=== PATIENT | female | born 1985 | race Caucasian/White ===

== ENCOUNTER 2017-08-21 18:21 | Emergency (ER) | payer MEDICAID ==
[2017-08-21] MEDS ORDERED: Sodium Chloride 0.9% 1,000 ML IV ONE (19:12)
[2017-08-21] MEDS ORDERED: Sodium Chloride 0.9% 10 ML Syringe FLUSH PRN (19:13)
[2017-08-21] MEDS ORDERED: Ondansetron 4 MG/2 ML SDV IVPUSH ONE (19:13)
[2017-08-21] MEDS ORDERED: HYDROmorphone 0.5 MG/0.5 ML Syringe IVPUSH ONE (19:13)
--- NOTE | 2017-08-21 19:31 | EDM.PDOC ---
ED HPI GENERAL MEDICAL PROBLEM - General Chief Complaint: Abdominal Pain Stated Complaint: ABDOMINAL PAIN Time Seen by Provider: 08/21/17 18:47 Source of Information: Reports: Patient History Limitations: Reports: No Limitations - History of Present Illness INITIAL COMMENTS - FREE TEXT/NARRATIVE: Patient is a 31-year-old female with a history of endometriosis who presents to the ED complaining of lower suprapubic abdominal pain. Patient describes the discomfort as sharp in nature cramping sensation that waxes and wanes throughout the course of the day worsened with having a bowel movement and also urinating. States discomfort has been progressing over the past 5 days. Her menstrual cycle was approximately 10 days late. She questions if she was . She took a home test that was negative. She notes that she has a history of endometriosis with pain and heavy abnormal vaginal bleeding during her menstrual cycle. She's been saturating 1 tampon every hour. This is her usual pattern for the first 3 days. She states tge only thing that unusual at this point is the pain she's been experiencing. She's had normal bowel movements. States she's had some diarrhea which is normal for her with her menstrual cycle. Has pain with urination which is abnormal as well. She states the pain has been debilitating in comparison to other episodes. She is not on any contraceptives at this time. She was on Depo-Provera shot and discontinued this in August 2016 with plans of trying to have another child. In addition she was mildly nauseated this past week and felt bloated over the past week and a half. She's gained approximately 10-15 pounds over the last week and a half after stopping smoking. Of note she has been eating more. Additional past medical includes type 2 diabetes. She is on no additional medications. 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, Musculoskeletal History: Reports: Other (See Below) Other Musculoskeletal History: broken back in 2003 Social & Family History - Tobacco Use Smoking Status *Q: Former Smoker Used Tobacco, but Quit: Yes Month Tobacco Last Used: 2 weeks ago Second Hand Smoke Exposure: No - Caffeine Use Caffeine Use: Reports: Coffee - Recreational Drug Use Recreational Drug Use: No ED ROS GENERAL - Review of Systems Review Of Systems: See Below Constitutional: Reports: No Symptoms HEENT: Reports: No Symptoms Respiratory: Reports: No Symptoms Cardiovascular: Reports: No Symptoms GI/Abdominal: Reports: Abdominal Pain (suprapubic), Diarrhea (episodic). Denies : Bloody Stool, Constipation, Decreased Appetite, Distension, Flatus, Nausea, Vomiting : Reports: Dysuria, Frequency, Pain, Urgency. Denies: Discharge, Hematuria, Irregular Menses, Urinary Retention Musculoskeletal: Reports: Back Pain (low back) Skin: Reports: No Symptoms Neurological: Reports: No Symptoms ED EXAM, RENAL/ - Physical Exam Exam: See Below Exam Limited By: No Limitations General Appearance: Alert, WD/WN, Mild Distress Ears: Hearing Grossly Normal Nose: Normal Inspection Throat/Mouth: Normal Voice, No Airway Compromise Neck: Normal Inspection, Supple Respiratory/Chest: No Respiratory Distress, Lungs Clear, Normal Breath Sounds, No Accessory Muscle Use Cardiovascular: Normal Peripheral Pulses, Regular Rate, Rhythm GI/Abdominal: Normal Bowel Sounds, Soft, No Organomegaly, Distended, Tender ( Suprapubic region. No McBurney's point. No Watkins sign. No findings concerning for peritonitis) Back Exam: Normal Inspection. No: CVA Tenderness (L), CVA Tenderness (R) Extremities: Normal Inspection, Normal Range of Motion, Non-Tender, No Pedal Edema, Normal Capillary Refill Neurological: Alert, Oriented, CN II-XII Intact, Normal Cognition, No Motor/ Sensory Deficits Psychiatric: Normal Affect, Normal Mood Skin Exam: Warm, Dry, Intact, Normal Color Course - Vital Signs Last Recorded V/S: Last Vital Signs Temp 98.6 F 08/21/17 18:43 Pulse 92 08/21/17 18:43 Resp 16 08/21/17 18:43 BP 146/98 H 08/21/17 18:43 Pulse Ox 99 08/21/17 18:43 - Orders/Labs/Meds Orders: Active Orders 24 hr Category Date Time Status Peripheral IV Care [RC] . DIRECTED Care 08/21/17 19:13 Active Abdomen 2V AP Flat Upright [CR] Stat Exams 08/21/17 20:16 Taken Peripheral IV Insertion Adult [OM.PC] Stat Oth 08/21/17 19:13 Ordered Labs: Laboratory Tests 08/21/17 08/21/17 08/21/17 Range/Units 19:23 19:35 19:35 WBC 7.40 (3.98-10.04) K/mm3 RBC 4.79 (3.98-5.22) M/mm3 Hgb 13.8 (11.2-15.7) gm/L Hct 40.5 (34.1-44.9) % MCV 84.6 (79.4-94.8) fl MCH 28.8 (25.6-32.2) pg MCHC 34.1 (32.2-35.5) g/dl RDW Std Deviation 37.4 (36.4-46.3) fL Plt Count 288 (182-369) K/mm3 MPV 10.1 (9.4-12.3) fl Neut % (Auto) 67.4 (34.0-71.1) % Lymph % (Auto) 24.9 (19.3-51.7) % [place] % (Auto) 6.1 (4.7-12.5) % Eos % (Auto) 1.4 (0.7-5.8) Baso % (Auto) 0.1 (0.1-1.2) % Neut # (Auto) 4.99 (1.56-6.13) K/mm3 Lymph # (Auto) 1.84 (1.18-3.74) K/mm3 [place] # (Auto) 0.45 H (0.24-0.36) K/mm3 Eos # (Auto) 0.10 (0.04-0.36) K/mm3 Baso # (Auto) 0.01 (0.01-0.08) K/mm3 Sodium 142 (136-145) mEq/L Potassium 3.6 (3.5-5.1) mEq/L Chloride 106 (98-107) mEq/L Carbon Dioxide 23 (21-32) mEq/L Anion Gap 16.6 H (5-15) BUN 19 H (7-18) mg/dL Creatinine 0.9 (0.55-1.02) mg/dL Est Cr Clr Drug Dosing 82.25 mL/min Estimated GFR (MDRD) > 60 (>60) mL/min BUN/Creatinine Ratio 21.1 H (14-18) Glucose 109 H (74-106) mg/dL Calcium 9.3 (8.5-10.1) mg/dL Total Bilirubin 0.2 (0.2-1.0) mg/dL AST 23 (15-37) U/L ALT 35 (14-59) U/L Alkaline Phosphatase 63 (46-116) U/L C-Reactive Protein 1.3 H* (<1.0) mg/dL Total Protein 8.0 (6.4-8.2) g/dl Albumin 3.9 (3.4-5.0) g/dl Globulin 4.1 gm/dL Albumin/Globulin Ratio 1.0 (1-2) HCG, Qual (NEGATIVE) Urine Color Yellow (Yellow) Urine Appearance Clear (Clear) Urine pH 6.0 (5.0-8.0) Ur Specific Crow[place] 1.025 (1.005-1.030) Urine Protein Negative (Negative) Urine Glucose (UA) Negative (Negative) Urine Ketones Negative (Negative) Urine Occult Blood 2+ H (Negative) Urine Nitrite Negative (Negative) Urine Bilirubin Negative (Negative) Urine Urobilinogen 0.2 (0.2-1.0) Ur Leukocyte Esterase Negative (Negative) Urine RBC 0-5 (0-5) /hpf Urine WBC 0-5 (0-5) /hpf Ur Epithelial Cells 0-5 (0-5) /hpf Urine Bacteria Not seen (FEW) /hpf Urine Mucus Not seen (FEW) /hpf Blood Type 08/21/17 08/21/17 Range/Units 19:35 19:35 WBC (3.98-10.04) K/mm3 RBC (3.98-5.22) M/mm3 Hgb (11.2-15.7) gm/L Hct (34.1-44.9) % MCV (79.4-94.8) fl MCH (25.6-32.2) pg MCHC (32.2-35.5) g/dl RDW Std Deviation (36.4-46.3) fL Plt Count (182-369) K/mm3 MPV (9.4-12.3) fl Neut % (Auto) (34.0-71.1) % Lymph % (Auto) (19.3-51.7) % [place] % (Auto) (4.7-12.5) % Eos % (Auto) (0.7-5.8) Baso % (Auto) (0.1-1.2) % Neut # (Auto) (1.56-6.13) K/mm3 Lymph # (Auto) (1.18-3.74) K/mm3 [place] # (Auto) (0.24-0.36) K/mm3 Eos # (Auto) (0.04-0.36) K/mm3 Baso # (Auto) (0.01-0.08) K/mm3 Sodium (136-145) mEq/L Potassium (3.5-5.1) mEq/L Chloride (98-107) mEq/L Carbon Dioxide (21-32) mEq/L Anion Gap (5-15) BUN (7-18) mg/dL Creatinine (0.55-1.02) mg/dL Est Cr Clr Drug Dosing mL/min Estimated GFR (MDRD) (>60) mL/min BUN/Creatinine Ratio (14-18) Glucose (74-106) mg/dL Calcium (8.5-10.1) mg/dL Total Bilirubin (0.2-1.0) mg/dL AST (15-37) U/L ALT (14-59) U/L Alkaline Phosphatase (46-116) U/L C-Reactive Protein (<1.0) mg/dL Total Protein (6.4-8.2) g/dl Albumin (3.4-5.0) g/dl Globulin gm/dL Albumin/Globulin Ratio (1-2) HCG, Qual Negative (NEGATIVE) Urine Color (Yellow) Urine Appearance (Clear) Urine pH (5.0-8.0) Ur Specific [place] (1.005-1.030) Urine Protein (Negative) Urine Glucose (UA) (Negative) Urine Ketones (Negative) Urine Occult Blood (Negative) Urine Nitrite (Negative) Urine Bilirubin (Negative) Urine Urobilinogen (0.2-1.0) Ur Leukocyte Esterase (Negative) Urine RBC (0-5) /hpf Urine WBC (0-5) /hpf Ur Epithelial Cells (0-5) /hpf Urine Bacteria (FEW) /hpf Urine Mucus (FEW) /hpf Blood Type A POSITIVE Meds: Medications Discontinued Medications Generic Name Dose Route Start Last Admin Trade Name Freq PRN Reason Stop Dose Admin Dicyclomine HCl 20 mg 08/21/17 20:56 08/21/17 21:06 Bentyl PO 08/21/17 20:57 20 mg ONETIME ONE Administration Hydromorphone HCl 0.25 mg 08/21/17 19:13 08/21/17 19:35 Dilaudid IVPUSH 08/21/17 19:14 0.25 mg ONETIME ONE Administration Sodium Chloride 1,000 mls @ 999 mls/hr 08/21/17 19:12 08/21/17 19:36 Normal Saline IV 08/21/17 20:12 999 mls/hr ONETIME ONE Administration Ketorolac Tromethamine 30 mg 08/21/17 20:55 08/21/17 21:05 Toradol IVPUSH 08/21/17 20:56 30 mg ONETIME ONE Administration Ondansetron HCl 4 mg 08/21/17 19:13 08/21/17 19:35 Zofran IVPUSH 08/21/17 19:14 4 mg ONETIME ONE Administration Sodium Chloride 10 ml 08/21/17 19:13 08/21/17 19:36 Saline Flush FLUSH 10 ml ASDIRECTED PRN Administration Keep Vein Open - Re-Assessments/Exams Free Text/Narrative Re-Assessment/Exam: IV established with normal saline 999 mls per hour and Dilaudid 0.25 mg IVP. Ordered Zofran 4 mg IVP as well. Initial labs and studies include CBC, chem 14, CRP, hCG qualitative, ABO/Rh type , and UA. CBC essentially normal. She panel revealed sodium 142 with potassium 3.6. AG 16.6 with a BUN and 18. Creatinine 0.9. CRP 1.3. HCG negative. UA negative for any concerning findings. X-ray of the abdomen reviewed with Dr. Carlos. Nonspecific air in stool pattern. No air-fluid levels. No signs of obstruction. Toradol 30 mg IV ordered for pain along with 20 mg Bentyl by mouth. 08/21/17 21:07 Reassessment, patients in no acute distress. Vital signs are stable. Will discharge patient home with instructions as documented. Departure - Departure Time of Disposition: 21:08 Disposition: Home, Self-Care 01 Condition: Good Clinical Impression: Menstrual cycle problem Abdominal pain Qualifiers: Abdominal location: generalized Qualified Code(s): R10.84 - Generalized abdominal pain Constipation Qualifiers: Constipation type: unspecified constipation type Qualified Code(s): K59.00 - Constipation, unspecified - Discharge Information Instructions: Constipation, Adult, [id number], Abdominal Pain, Adult, Easy-to -Read Referrals: Roz Randall PA-C [Primary Care Provider] - Forms: ED Department Discharge, ED Return to Work/School Form Additional Instructions: As discussed labs are essentially normal. X-ray of the abdomen did reveal findings of increased stool pattern with the right Hemoccult with nonspecific air pattern present. Believe you may be constipated with history and also findings on examination. In addition her having heavy vaginal bleeding with starting her menstrual cycle which is normal for you. Continue to monitor for any abnormalities and/or worsening bleeding. If present please return back to the ED. Will start you on MiraLAX one capful every day with copious amounts of water. Increase fiber in your diet along with exercise. Follow-up with Primary care provider in the next week for reevaluation as needed. No driving this evening since receiving a sedative medication. May also utilize ibuprofen and Tylenol in alternating fashion for discomfort. - My Orders Last 24 Hours: My Active Orders 08/21/17 19:13 Peripheral IV Care [RC] . DIRECTED Peripheral IV Insertion Adult [OM.PC] Stat 08/21/17 20:16 Abdomen 2V AP Flat Upright [CR] Stat - Assessment/Plan Last 24 Hours: My Active Orders 08/21/17 19:13 Peripheral IV Care [RC] . DIRECTED Peripheral IV Insertion Adult [OM.PC] Stat 08/21/17 20:16 Abdomen 2V AP Flat Upright [CR] Stat
[2017-08-21] MEDS ORDERED: Ketorolac 30 MG/ML SDV IVPUSH ONE (20:55)
[2017-08-21] MEDS ORDERED: Dicyclomine 10 MG Cap PO ONE (20:56)
--- NOTE | 2017-08-22 06:54 | CR ---
Abdomen: Supine and upright views of the abdomen were obtained. Bowel gas pattern appears within normal limits. No abnormal calcifications or soft tissue abnormality is seen. Bony structures are unremarkable. Impression: 1. No abnormality is seen on two-view abdominal x-ray. Diagnostic code #1
== END 2017-08-21 21:20 | disposition home or self-care (01) ==
LOC: MERGE 18:21 → JD.ED 18:21
DX: K59.00 Constipation, unspecified (principal); N94.89 Other specified conditions associated with female genital organs and menstrual cycle; E11.9 Type 2 diabetes mellitus without complications; Z87.891 Personal history of nicotine dependence; Z79.899 Other long term (current) drug therapy
CPT/HCPCS: 36415; 74019; 80053; 81001; 84703; 85025; 86140; 86900; 86901; 96361; 96374; 96375; 99284; A9270; J1170; J1885; J2405; J7040; J7050

== ENCOUNTER 2019-01-09 07:05 | Day surgery (SDC) | payer MEDICAID, OTHER ==
[~2019-01-09 07:05] MED LIST: Lidocaine 1% 2 ML ONE; Lidocaine 1%/Sod Bicarbonate in NS 8.4% 1 ML Syringe IDERM PRN; Midazolam 1 MG/ML 2 ML SDV ONE; Propofol 200 MG/20 ML SDV ONE; Rocuronium 50 MG/5 ML Vial ONE; Sodium Chloride 0.9% 10 ML Syringe FLUSH PRN; fentaNYL 250 MCG/5 ML SDV ONE
--- NOTE | 2019-01-09 07:06 | PCM.OPNOTE ---
- General Post-Op/Procedure Note Date of Surgery/Procedure: 01/09/19 Operative Procedure(s): Total vaginal hysterectomy. Removal of vulvar skin tags x4 Findings: SVE with mobile, anteverted uterus. Normal appearance of cervix and uterus. Views of ovaries limited, but grossly normal. Pre Op Diagnosis: Abnormal uterine bleeding - failed medical management. Vulvar skin tags Post-Op Diagnosis: Same Anesthesia Technique: Spinal Primary Surgeon: Mari Delgado Secondary Surgeon: Tabitha Fletcher Anesthesia Provider: Funmilayo Whtiney Reason Direct Marketing Specialist Was Necessary: BMI of patient, speed/safety of procedure Pathology: Cervix and uterus sent to pathology, excised skin tags discarded Fluid Replacement, Intraop: 1,300 Output, Urine Amount: 50 EBL in mLs: 30 Complications: None Condition: Good Free Text/Narrative:: The risks, benefits, indications, potential complications, and alternatives were explained to the patient and informed consent obtained. The patient was taken to the Operating Room where general anesthesia was induced without complication and found to be adequate. The patient was placed in dorsal lithotomy with Jermaine stirrups and an exam under anesthesia revealed the findings detailed above. The patient was then prepped and draped in the usual sterile fashion. Jarrell catheter placed. A weighted speculum was placed in the vagina, and the cervix was grasped with a single tooth tenaculum. The cervix was injected circumferentially with ~15 of 1 % lidocaine with dilute epinephrine. The cervix was then circumferentially incised with a scalpel. The posterior cul-de-sac was entered sharply without difficulty. An 0-Vicryl pop-off sutures were placed posteriorly to include the posterior vaginal mucosa and the posterior peritoneum. The short weighted speculum was replaced with a long weighted speculum into the peritoneal cavity posteriorly. The bladder was dissected away from the pubovesical cervical fascia anteriorly with a sponge and blunt dissection. The uterosacral ligaments were grasped on either side with the Ligasure, cauterized, and transected. Hemostasis was assured. A raytec was used for further blunt dissection of the bladder away from the pubovesical cervical fascia and then the anterior cul de sac was entered sharply with Metzenbaum scissors. The cardinal ligaments were then serially clamped on both sides with the Ligasure, cauterized, and transected. The uterine arteries were then clamped with the Ligasure, cauterized, and transected. Both cornua were then clamped, cauterized , and transected and the uterus was removed. The posterior vaginal cuff was then closed with a running, locked 0 vicryl suture. Slight oozing noted from anterior cuff. Bimal-seal placed along this surface. The vaginal cuff was closed in a running locked fashion with 0- Vicryl. Hemostasis was noted. Jarrell catheter removed. Vulvar inspection showed 4 skin tags to be removed. Two of these were on left and two on right. Skin tags grasped with a forceps and excised sharply at base with Metzenbaum scissors. Hemostasis of sites obtained with silver nitrate. All sponge, lap, needle, and instrument counts were correct x 2. The patient tolerated the procedure well and there were no complications.
[2019-01-09] MEDS ORDERED: ceFAZolin 1 GM Vial ONE ×2 (07:11)
[2019-01-09] MEDS ORDERED: Bupivacaine 0.5% 30 ML SDV ONE (07:16)
[2019-01-09] MEDS ORDERED: Lidocaine 1% with EPINEPHrine 1:100,000 20 ML MDV ONE (07:16)
[2019-01-09] MEDS: Lactated Ringers 1,000 ML IV SCH ×2 (07:33→11:47)
--- NOTE | 2019-01-09 07:37 | PCM.PREANE ---
Preanesthetic Assessment - Anesthesia/Transfusion/Family Hx Anesthesia History: Prior Anesthesia Without Reaction Family History of Anesthesia Reaction: No Transfusion History: No Prior Transfusion(s) - Review of Systems General: No Symptoms Pulmonary: No Symptoms Cardiovascular: No Symptoms Gastrointestinal: No Symptoms Neurological: No Symptoms Other: Reports: None - Physical Assessment NPO Status Date: 01/09/19 NPO Status Time: 00:00 Pulse: 89 O2 Sat by Pulse Oximetry: 96 Respiratory Rate: 16 Blood Pressure: 127/85 Temperature: 98.2 C ASA Class: 2 Mental Status: Alert & Oriented x3 Airway Class: Mallampati = 1 Dentition: Reports: Normal Dentition (broken tooth upper (R) back molar) Thyro-Mental Finger Breadths: 3 Mouth Opening Finger Breadths: 3 ROM/Head Extension: Full Lungs: Clear to Auscultation, Normal Respiratory Effort Cardiovascular: Regular Rate, Regular Rhythm - Lab Values: Laboratory Last Values Urine HCG, Qual Negative (NEGATIVE) 01/09/19 07:13 - Allergies Allergies/Adverse Reactions: Allergies Allergy/AdvReac Type Severity Reaction Status Date / Time No Known Allergies Allergy Verified 01/08/19 10:40 - Acknowledgements Anesthesia Type Planned: General Anesthesia Pt an Appropriate Candidate for the Planned Anesthesia: Yes Alternatives and Risks of Anesthesia Discussed w Pt/Guardian: Yes Pt/Guardian Understands and Agrees with Anesthesia Plan: Yes PreAnesthesia Questionnaire HEENT History: Reports: None Cardiovascular History: Reports: None Respiratory History: Reports: None Gastrointestinal History: Reports: Chronic Constipation, GERD Genitourinary History: Reports: STD 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, , Therapeutic , Other ( See Below) (LMP-om depo but still having bleeding, awaiting HCG) Other OB/BYN History: , SAB, diagnostic laparoscopy with biospy, port hemorrhage Musculoskeletal History: Reports: Other (See Below) Other Musculoskeletal History: broken back in 2003 Neurological History: Reports: Headaches, Chronic Psychiatric History: Reports: None Endocrine/Metabolic History: Reports: Diabetes, Gestational, Diabetes, Type II ( BS 133 @ 0734) Hematologic History: Reports: None Immunologic History: Reports: None Oncologic (Cancer) History: Reports: None Dermatologic History: Reports: None - Past Surgical History Head Surgeries/Procedures: Reports: None HEENT Surgical History: Reports: Adenoidectomy, Oral Surgery (wisdom teeth), Tonsillectomy Cardiovascular Surgical History: Reports: None Respiratory Surgical History: Reports: None GI Surgical History: Reports: None Female Surgical History: Reports: Other (See Below) (laparoscopy- endometriosis) Endocrine Surgical History: Reports: None Neurological Surgical History: Reports: None Musculoskeletal Surgical History: Reports: None Oncologic Surgical History: Reports: None Dermatological Surgical History: Reports: None - SUBSTANCE USE Smoking Status *Q: Former Smoker Recreational Drug Use History: No - HOME MEDS Home Medications: Home Meds Acetaminophen [Tylenol Extra Strength] 500 mg PO BID PRN 01/08/19 [History] Cholecalciferol (Vitamin D3) [Vitamin D3] 1,000 unit PO DAILY 01/08/19 [History] Cider Vinegar [Apple Cider Vinegar] 500 mg PO DAILY 01/08/19 [History] Fish Oil/Rosebud-3 Fatty Acids [Fish Oil 1,000 MG] 1 gm PO DAILY 01/08/19 [History ] Inulin/Chromium Picolinate [Fiber Gummies] 1 tab PO DAILY 01/08/19 [History] metFORMIN [Glucophage XR] 500 mg PO DAILY 01/08/19 [History] - CURRENT (IN HOUSE) MEDS Current Meds: Current Medications Lactated Ringer's (Ringers, Lactated) 1,000 mls @ 125 mls/hr IV ASDIRECTED SHELIA Stop: 01/09/19 23:00 Lidocaine/Sodium Bicarbonate (Buffered Lidocaine 1% In Ns 8.4%) 0.25 ml IDERM ONETIME PRN PRN Reason: Prior to IV Start Stop: 01/09/19 18:00 Sodium Chloride (Saline Flush) 10 ml FLUSH ASDIRECTED PRN PRN Reason: Keep Vein Open Stop: 01/09/19 18:00 Discontinued Medications Bupivacaine HCl (Marcaine 0.5%) Confirm Administered Dose 30 ml .ROUTE .STK-MED ONE Stop: 01/09/19 07:17 Cefazolin Sodium (Ancef) Confirm Administered Dose 1 gm .ROUTE .STK-MED ONE Stop: 01/09/19 07:12 Cefazolin Sodium (Ancef) Confirm Administered Dose 1 gm .ROUTE .STK-MED ONE Stop: 01/09/19 07:12 Fentanyl (Sublimaze) Confirm Administered Dose 250 mcg .ROUTE .STK-MED ONE Stop: 01/09/19 06:57 Lidocaine HCl (Xylocaine-Mpf 1%) Confirm Administered Dose 2 mls @ as directed .ROUTE .STK-MED ONE Stop: 01/09/19 06:56 Lidocaine HCl (Xylocaine-Mpf 1%) Confirm Administered Dose 2 mls @ as directed .ROUTE .STK-MED ONE Stop: 01/09/19 06:57 Lidocaine/Epinephrine (Xylocaine 1% With Epinephrine 1:100,000) Confirm Administered Dose 20 ml .ROUTE .STK-MED ONE Stop: 01/09/19 07:17 Midazolam HCl (Versed 1 Mg/Ml) Confirm Administered Dose 2 mg .ROUTE .STK-MED ONE Stop: 01/09/19 06:59 Propofol (Diprivan 20 Ml) Confirm Administered Dose 200 mg .ROUTE .STK-MED ONE Stop: 01/09/19 06:56 Rocuronium Omar (Zemuron) Confirm Administered Dose 50 mg .ROUTE .STK-MED ONE Stop: 01/09/19 06:57
[2019-01-09] MEDS ORDERED: Scopolamine 1.5 MG Transdermal Patch TRDERM ONE (07:50)
[2019-01-09] MEDS ORDERED: HYDROmorphone 0.5 MG/0.5 ML Syringe ONE ×2 (08:24→08:56)
[2019-01-09] MEDS ORDERED: Ketorolac 30 MG/ML SDV ONE (08:27)
[2019-01-09] MEDS ORDERED: Ondansetron 4 MG/2 ML SDV ONE (08:27)
[2019-01-09] MEDS ORDERED: Ondansetron 4 MG/2 ML SDV IVPUSH PRN (08:33)
[2019-01-09] MEDS ORDERED: fentaNYL 100 MCG/2 ML SDV IVPUSH PRN (08:33)
[2019-01-09] MEDS ORDERED: diphenhydrAMINE 50 MG/ML SDV IVPUSH PRN (08:33)
[2019-01-09] MEDS ORDERED: HYDROmorphone 0.5 MG/0.5 ML Syringe IVPUSH PRN (08:34)
[2019-01-09] MEDS ORDERED: Lactated Ringers 1,000 ML ONE (09:01)
[2019-01-09] MEDS ORDERED: fentaNYL 100 MCG/2 ML SDV ONE (09:26)
--- NOTE | 2019-01-09 09:34 | PCM.POSTAN ---
POST ANESTHESIA ASSESSMENT - MENTAL STATUS Mental Status: Alert, Oriented - VITAL SIGNS Pulse Rate: 90 SaO2: 97 Resp Rate: 10 Blood Pressure: 112/60 Temperature: 98.9 C - RESPIRATORY Respiratory Status: Respiratory Rate WNL, Airway Patent, O2 Saturation Stable - CARDIOVASCULAR CV Status: Pulse Rate WNL, Blood Pressure Stable - GASTROINTESTINAL GI Status: No Symptoms - PAIN Pain Score: 2 - POST OP HYDRATION Hydration Status: Adequate & Stable
[2019-01-09] MEDS ORDERED: Acetaminophen/oxyCODONE 325-5 MG Tab PO PRN (10:22)
--- NOTE | 2019-01-09 10:33 | PCM48HPAN ---
Post Anesthesia Note - EVALUATION WITHIN 48HRS OF ANESTHETIC Vital Signs in Normal Range: Yes Patient Participated in Evaluation: Yes Respiratory Function Stable: Yes Airway Patent: Yes Cardiovascular Function Stable: Yes Hydration Status Stable: Yes Pain Control Satisfactory: Yes (pain responding to dilaudid per RN) Nausea and Vomiting Control Satisfactory: Yes Mental Status Recovered: Yes Temperature: 98.9 C
== END 2019-01-09 12:33 | disposition home or self-care (01) ==
LOC: JD.SDS 07:05
PROVIDERS: ATTEND Obstetrics & Gynecology
DX: N93.9 Abnormal uterine and vaginal bleeding, unspecified (principal); N85.4 Malposition of uterus; N90.89 Other specified noninflammatory disorders of vulva and perineum; E11.9 Type 2 diabetes mellitus without complications; Z87.891 Personal history of nicotine dependence; Z79.4 Long term (current) use of insulin; Z79.899 Other long term (current) drug therapy
CPT/HCPCS: 00944; 36415; 80048; 81025; 82962; 85025; 86850; 86900; 86901; A9270-GY; J0690; J1170; J1885; J2001; J2250; J2405; J2704; J3010; J3490; J7120

== ENCOUNTER 2021-02-12 17:46 | Emergency (ER) | payer BC, OTHER ==
[2021-02-12] MEDS ORDERED: Ondansetron 4 MG/2 ML SDV IVPUSH ONE (18:23)
[2021-02-12] MEDS ORDERED: Sodium Chloride 0.9% 1,000 ML IV STA (18:23)
[2021-02-12] MEDS ORDERED: Sodium Chloride 0.9% 10 ML Syringe FLUSH PRN (18:23)
[2021-02-12] MEDS ORDERED: Pantoprazole 40 MG Vial IVPUSH ONE (18:25)
--- NOTE | 2021-02-12 18:35 | EDM.PDOC ---
<Franko Bahena A - Last Filed: 02/12/21 19:27> ED HPI GENERAL MEDICAL PROBLEM - General Chief Complaint: Abdominal Pain Stated Complaint: ABDOMINAL PAIN Time Seen by Provider: 02/12/21 18:01 Source of Information: Reports: Patient History Limitations: Reports: No Limitations - History of Present Illness INITIAL COMMENTS - FREE TEXT/NARRATIVE: The patient presents with upper abdominal pain with nausea. This started about 2 days ago. She had a gastric sleeve 10 months ago and she lost 80 pounds. She still has her appendix and gallbladder. She did eat some pizza and beer which she usually does not eat. She has no fever, chills, cough, chest pain, shortness of breath, dysuria or diarrhea. She was on vacation and just came back today. Onset: Gradual Duration: Day(s): (2) Location: Reports: Abdomen Quality: Reports: Sharp Severity: Moderate Improves with: Reports: None Worsens with: Reports: None Associated Symptoms: Reports: Nausea/Vomiting. Denies: Chest Pain, Cough, Fever/Chills, Headaches, Shortness of Breath Epigastric Pain Score (Numeric/FACES): 5 - Related Data Allergies Allergy/AdvReac Type Severity Reaction Status Date / Time No Known Allergies Allergy Verified 02/12/21 18:00 Home Meds: Home Meds Acetaminophen [Tylenol Extra Strength] 1,000 mg PO Q6H PRN 02/12/21 [History] Omeprazole 20 mg PO ASDIRECTED 02/12/21 [History] Ondansetron [Zofran ODT] 1 tab PO Q8H PRN #10 tab.dis 02/12/21 [Rx] Past Medical History HEENT History: Reports: None Cardiovascular History: Reports: None Respiratory History: Reports: Pneumonia, Recurrent Gastrointestinal History: Reports: Chronic Constipation, GERD Genitourinary History: Reports: STD 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: Reports: Endometriosis, , Therapeutic , Other (See Below) Other 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: , SAB, diagnostic laparoscopy with biospy, port hemorrhage Musculoskeletal History: Reports: Fracture, Other (See Below) Other Musculoskeletal History: broken back in 2003 Neurological History: Reports: Headaches, Chronic Psychiatric History: Reports: Anxiety Endocrine/Metabolic History: Reports: Diabetes, Gestational, Diabetes, Type II Hematologic History: Reports: Anemia Immunologic History: Reports: None Oncologic (Cancer) History: Reports: None Dermatologic History: Reports: None - Infectious Disease History Infectious Disease History: Reports: Chicken Pox - Past Surgical History HEENT Surgical History: Reports: Adenoidectomy, Oral Surgery, Tonsillectomy GI Surgical History: Reports: Other (See Below) Other GI Surgeries/Procedures: gastric sleeve. Female Surgical History: Reports: Hysterectomy Social & Family History - Family History Cardiac: Reports: Heart Failure Neurological: Reports: CVA Endocrine/Metabolic: Reports: Diabetes, type II Oncologic: Reports: Prostate, Other (See Below) Other Oncologic Family History: throat cancer- father - Tobacco Use Tobacco Use Status *Q: Never Tobacco User Second Hand Smoke Exposure: No - Caffeine Use Caffeine Use: Reports: Coffee - Recreational Drug Use Recreational Drug Use: No ED ROS GENERAL - Review of Systems Review Of Systems: See Below Constitutional: Reports: No Symptoms HEENT: Reports: No Symptoms Respiratory: Reports: No Symptoms Cardiovascular: Reports: No Symptoms Endocrine: Reports: No Symptoms GI/Abdominal: Reports: Abdominal Pain, Nausea. Denies: Diarrhea, Vomiting : Reports: No Symptoms Musculoskeletal: Reports: No Symptoms ED EXAM, GI/ABD - Physical Exam Exam: See Below Exam Limited By: No Limitations General Appearance: Alert, No Apparent Distress Ears: Normal External Exam Nose: Normal Inspection Head: Atraumatic, Normocephalic Neck: Normal Inspection Respiratory/Chest: No Respiratory Distress, Lungs Clear, Normal Breath Sounds Cardiovascular: Regular Rate, Rhythm, No Edema, No Murmur GI/Abdominal Exam: Soft, No Organomegaly, No Mass, Tender (Moderate tenderness to the right upper abdomen) Course - Re-Assessments/Exams Free Text/Narrative Re-Assessment/Exam: 02/12/21 18:34 I ordered an IV NS 1L bolus, zofran 4mg IV, protonix 40mg IV, labs, UA and a CT of her abdomen and pelvis. 02/12/21 19:27 Her CBC looks good. It is change of shift. Dr Peace to take over. Departure - Departure Disposition: Home, Self-Care 01 Clinical Impression: Upper abdominal pain of unknown etiology, Nausea & vomiting - Discharge Information Prescriptions: Ondansetron [Zofran ODT] 1 tab PO Q8H PRN #10 tab.dis PRN Reason: Nausea/Vomiting Instructions: Abdominal Pain, Adult, [id number] Referrals: Roz Randall PA-C [Primary Care Provider] - Blaise Goff MD [Ordering Only Provider] - Forms: ED Department Discharge Additional Instructions: You were seen in the emergency room for 2 days of upper abdominal pain with nausea and vomiting, in the setting of undergoing a laparoscopic sleeve gastrectomy about 10 months ago. Work-up in the ER included several blood tests, a urinalysis, and a CT of your abdomen and pelvis with oral and IV contrast. Your entire work-up was unremarkable, and does not explain the cause of your symptoms. You can be reassured, however, that nothing terrible appears to be happening. A prescription for the anti-nausea medicine Zofran has been sent to the [facility], located just south and across the [address] from [facility]. You may dissolve 1 tablet of Zofran on your tongue up to every 8 hours, as needed for nausea/vomiting. We recommend that you ingest a primarily liquid diet over the weekend. If your symptoms persist through the weekend without getting better or worse, we recommend that you follow-up with your bariatric surgeon, Dr. Blaise Goff. If your symptoms worsen, please do not hesitate to return to the ER for reevaluation. Sepsis Event Note (ED) - Evaluation Sepsis Screening Result: No Definite Risk <Lacho Peace - Last Filed: 02/12/21 23:20> Course - Vital Signs Last Recorded V/S: Last Vital Signs Temp 36.7 C 02/12/21 17:50 Pulse 68 02/12/21 17:50 Resp 18 02/12/21 17:50 BP 142/99 H 02/12/21 17:50 Pulse Ox 100 02/12/21 17:50 - Orders/Labs/Meds Orders: Active Orders 24 hr Category Date Time Status Peripheral IV Care [RC] . DIRECTED Care 02/12/21 18:24 Active Abdomen Pelvis w Cont [CT] Stat Exams 02/12/21 18:23 Taken Sodium Chloride 0.9% [Normal Saline] 100 ml Med 02/12/21 21:30 Active IV ASDIRECTED Sodium Chloride 0.9% [Saline Flush] Med 02/12/21 18:23 Active 10 ml FLUSH ASDIRECTED PRN Sodium Chloride 0.9% [Saline Flush] Med 02/12/21 21:30 Active 10 ml FLUSH BOLUS ED Antiemetic Medication Reflex [OM.PC] Stat Oth 02/12/21 18:24 Ordered Peripheral IV Insertion Adult [OM.PC] Stat Ot 02/12/21 18:23 Ordered Medication Orders Sodium Chloride (Normal Saline) 100 mls @ 60 drops/hr IV ASDIRECTED SHELIA Last Admin: 02/12/21 21:20 Dose: 60 drops/hr Documented by: VLADIMIR Sodium Chloride (Sodium Chloride 0.9% 10 Ml Syringe) 10 ml FLUSH ASDIRECTED PRN PRN Reason: Keep Vein Open Last Admin: 02/12/21 19:09 Dose: 10 ml Documented by: RISHIMIC Sodium Chloride (Sodium Chloride 0.9% 10 Ml Syringe) 10 ml FLUSH [facility] Last Admin: 02/12/21 21:20 Dose: 10 ml Documented by: VLADIMIR Labs: Laboratory Tests 02/12/21 02/12/21 02/12/21 Range/Units 18:50 18:50 18:50 WBC 6.33 (3.98-10.04) K/mm3 RBC 4.19 (3.98-5.22) M/mm3 Hgb 12.5 (11.2-15.7) gm/dl Hct 36.6 (34.1-44.9) % MCV 87.4 (79.4-94.8) fl MCH 29.8 (25.6-32.2) pg MCHC 34.2 (32.2-35.5) g/dl RDW Std Deviation 38.3 (36.4-46.3) fL Plt Count 237 (182-369) K/mm3 MPV 10.3 (9.4-12.3) fl Neut % (Auto) 52.7 (34.0-71.1) % Lymph % (Auto) 38.5 (19.3-51.7) % [place] % (Auto) 6.2 (4.7-12.5) % Eos % (Auto) 2.1 (0.7-5.8) Baso % (Auto) 0.3 (0.1-1.2) % Neut # (Auto) 3.34 (1.56-6.13) K/mm3 Lymph # (Auto) 2.44 (1.18-3.74) K/mm3 [place] # (Auto) 0.39 H (0.24-0.36) K/mm3 Eos # (Auto) 0.13 (0.04-0.36) K/mm3 Baso # (Auto) 0.02 (0.01-0.08) K/mm3 Sodium 143 (136-145) mEq/L Potassium 3.8 (3.5-5.1) mEq/L Chloride 107 (98-107) mEq/L Carbon Dioxide 26 (21-32) mEq/L Anion Gap 13.8 (5-15) BUN 19 H (7-18) mg/dL Creatinine 1.1 H (0.55-1.02) mg/dL Est Cr Clr Drug Dosing 64.84 mL/min Estimated GFR (MDRD) 57 (>60) mL/min BUN/Creatinine Ratio 17.3 (14-18) Glucose 105 H (70-99) mg/dL Calcium 8.8 (8.5-10.1) mg/dL Total Bilirubin 0.2 (0.2-1.0) mg/dL AST 16 (15-37) U/L ALT 23 (14-59) U/L Alkaline Phosphatase 53 (46-116) U/L Total Protein 7.1 (6.4-8.2) g/dl Albumin 3.8 (3.4-5.0) g/dl Globulin 3.3 gm/dL Albumin/Globulin Ratio 1.2 (1-2) Lipase 120 (73-393) U/L HCG, Qual Negative (NEGATIVE) Urine Color (Yellow) Urine Appearance (Clear) Urine pH (5.0-8.0) Ur Specific [place] (1.005-1.030) Urine Protein (Negative) Urine Glucose (UA) (Negative) Urine Ketones (Negative) Urine Occult Blood (Negative) Urine Nitrite (Negative) Urine Bilirubin (Negative) Urine Urobilinogen (0.2-1.0) Ur Leukocyte Esterase (Negative) Urine RBC (0-5) /hpf Urine WBC (0-5) /hpf Ur Squamous Epith Cells (0-5) /hpf Urine Bacteria (FEW) /hpf Urine Mucus (FEW) /hpf 02/12/21 Range/Units 19:35 WBC (3.98-10.04) K/mm3 RBC (3.98-5.22) M/mm3 Hgb (11.2-15.7) gm/dl Hct (34.1-44.9) % MCV (79.4-94.8) fl MCH (25.6-32.2) pg MCHC (32.2-35.5) g/dl RDW Std Deviation (36.4-46.3) fL Plt Count (182-369) K/mm3 MPV (9.4-12.3) fl Neut % (Auto) (34.0-71.1) % Lymph % (Auto) (19.3-51.7) % [place] % (Auto) (4.7-12.5) % Eos % (Auto) (0.7-5.8) Baso % (Auto) (0.1-1.2) % Neut # (Auto) (1.56-6.13) K/mm3 Lymph # (Auto) (1.18-3.74) K/mm3 [place] # (Auto) (0.24-0.36) K/mm3 Eos # (Auto) (0.04-0.36) K/mm3 Baso # (Auto) (0.01-0.08) K/mm3 Sodium (136-145) mEq/L Potassium (3.5-5.1) mEq/L Chloride (98-107) mEq/L Carbon Dioxide (21-32) mEq/L Anion Gap (5-15) BUN (7-18) mg/dL Creatinine (0.55-1.02) mg/dL Est Cr Clr Drug Dosing mL/min Estimated GFR (MDRD) (>60) mL/min BUN/Creatinine Ratio (14-18) Glucose (70-99) mg/dL Calcium (8.5-10.1) mg/dL Total Bilirubin (0.2-1.0) mg/dL AST (15-37) U/L ALT (14-59) U/L Alkaline Phosphatase (46-116) U/L Total Protein (6.4-8.2) g/dl Albumin (3.4-5.0) g/dl Globulin gm/dL Albumin/Globulin Ratio (1-2) Lipase (73-393) U/L HCG, Qual (NEGATIVE) Urine Color Yellow (Yellow) Urine Appearance Clear (Clear) Urine pH 7.5 (5.0-8.0) Ur Specific [place] 1.020 (1.005-1.030) Urine Protein Negative (Negative) Urine Glucose (UA) Negative (Negative) Urine Ketones Negative (Negative) Urine Occult Blood Negative (Negative) Urine Nitrite Negative (Negative) Urine Bilirubin Negative (Negative) Urine Urobilinogen 0.2 (0.2-1.0) Ur Leukocyte Esterase Negative (Negative) Urine RBC 0-5 (0-5) /hpf Urine WBC 0-5 (0-5) /hpf Ur Squamous Epith Cells 0-5 (0-5) /hpf Urine Bacteria Few (FEW) /hpf Urine Mucus Few (FEW) /hpf Meds: Medications Generic Name Dose Route Start Last Admin Trade Name Freq PRN Reason Stop Dose Admin Sodium Chloride 100 mls @ 60 drops/hr 02/12/21 21:30 02/12/21 21:20 Normal Saline IV 60 drops/hr ASDIRECTED SHELIA Administration Sodium Chloride 10 ml 02/12/21 18:23 02/12/21 19:09 Sodium Chloride 0.9% 10 Ml Syringe FLUSH 10 ml ASDIRECTED PRN Administration Keep Vein Open Sodium Chloride 10 ml 02/12/21 21:30 02/12/21 21:20 Sodium Chloride 0.9% 10 Ml Syringe FLUSH 10 ml BOLUS SHELIA Administration Discontinued Medications Generic Name Dose Route Start Last Admin Trade Name Freq PRN Reason Stop Dose Admin Acetaminophen 975 mg 02/12/21 20:25 02/12/21 20:38 Acetaminophen 325 Mg Tab PO 02/12/21 20:26 975 mg NOW ONE Administration Hydromorphone HCl 0.5 mg 02/12/21 19:34 02/12/21 19:44 Hydromorphone 0.5 Mg/0.5 Ml Syringe IVPUSH 02/12/21 19:35 0.5 mg ONETIME ONE Administration Sodium Chloride 1,000 mls @ 1,000 mls/hr 02/12/21 18:23 02/12/21 18:52 Normal Saline IV 02/12/21 19:22 1,000 mls/hr .BOLUS STA Administration Iopamidol 100 ml 02/12/21 21:19 02/12/21 21:20 Iopamidol 612 Mg/Ml 100 Ml Bottle IVPUSH 02/12/21 21:20 100 ml ONETIME ONE Administration Ondansetron HCl 4 mg 02/12/21 18:23 02/12/21 18:52 Ondansetron 4 Mg/2 Ml Sdv IVPUSH 02/12/21 18:24 4 mg ONETIME ONE Administration Pantoprazole Sodium 40 mg 02/12/21 18:25 02/12/21 18:53 Pantoprazole 40 Mg Vial IVPUSH 02/12/21 18:26 40 mg ONETIME ONE Administration - Re-Assessments/Exams Free Text/Narrative Re-Assessment/Exam: 02/12/21 20:[address] Bahena for change of shift. I agree with his history and physical exam as documented. The patient's CMP is remarkable for a BUN/Cr slightly elevated at 19/1.1, and slight hyperglycemia of 105, with the remainder of her CMP being unremarkable. Her lipase level is within normal limits at 120. Her serum qualitative hCG is negative. Her urinalysis is unremarkable. 02/12/21 22:28 CT of the abdomen and pelvis with oral and IV contrast is read by [facility] as "No evidence of acute abnormality in the abdomen or pelvis." 02/12/21 22:49 Test results discussed with the patient. As above, today's work-up is unremarkable, and does not explain the cause of her symptoms. I explained that what ever the cause, it does not appear to be anything serious. I will submit a prescription for Zofran, and recommended that she ingest a primarily liquid diet over the weekend. If her symptoms persist and do not improve, I would like her to follow-up with Dr. Goff, her Bariatric Surgeon. If her symptoms worsen, she should return to the ED for reevaluation. Departure - Departure Time of Disposition: 22:50 Condition: Good - Discharge Information *PRESCRIPTION DRUG MONITORING PROGRAM REVIEWED*: Not Applicable *COPY OF PRESCRIPTION DRUG MONITORING REPORT IN PATIENT JESSICA: Not Applicable Sepsis Event Note (ED) - Focused Exam Vital Signs: Vital Signs Temp Pulse Resp BP Pulse Ox 02/12/21 17:50 36.7 C 68 18 142/99 H 100
[2021-02-12] MEDS ORDERED: HYDROmorphone 0.5 MG/0.5 ML Syringe IVPUSH ONE (19:34)
[2021-02-12] MEDS ORDERED: Acetaminophen 325 MG Tab PO ONE (20:25)
[2021-02-12] MEDS ORDERED: Iopamidol 612 MG/ML 100 ML Bottle IVPUSH ONE (21:19)
[2021-02-12] MEDS ORDERED: Sodium Chloride 0.9% 100 ML IV SCH (21:30)
[2021-02-12] MEDS ORDERED: Sodium Chloride 0.9% 10 ML Syringe FLUSH SCH (21:30)
--- NOTE | 2021-02-13 14:58 | CT ---
CT abdomen and pelvis Technique: Multiple axial sections were obtained from above the dome of the diaphragm inferiorly through the pubic symphysis. Delayed images were also obtained. Reconstructed coronal and sagittal images were also obtained. Comparison: Prior abdominal radiograph of 08/21/17. Findings: Visualized lung bases show nothing acute. Liver contains no focal parenchymal abnormality. Spleen size is normal. Adrenal glands show no nodule. Pancreas appears within normal limits. Gallbladder contains no calcified gallstones. Kidneys show symmetric contrast enhancement. Delayed images show contrast excretion from both kidneys into the ureters and minimal contrast is noted within the bladder. Abdominal aorta shows no aneurysm. No retroperitoneal adenopathy or mesenteric abnormalities are seen. Small fat-containing hernia is noted above the umbilicus with two small densities at the base of the hernia raising the possibility of previous repair. Additional small fat-containing umbilical hernia is also noted which is felt to be incidental. Appendix is felt to be partially seen and appears normal in size. No bowel dilatation is seen. No pelvic mass or adenopathy is seen. No inguinal adenopathy is seen. Bone window settings were reviewed which show no acute osseous finding. Impression: 1. Small fat-containing hernia slightly above the umbilicus which shows two small high density areas at the base of this finding which most likely represent previous surgery. Please correlate. 2. Nothing acute is appreciated on CT study of the abdomen and pelvis. Diagnostic code #2 I agree with preliminary report from [facility], finalized on 02/12/21, 11:23 PM CDT, code 1
== END 2021-02-12 23:00 | disposition home or self-care (01) ==
LOC: JD.ED 17:46
DX: R10.13 Epigastric pain (principal); R11.2 Nausea with vomiting, unspecified; K21.9 Gastro-esophageal reflux disease without esophagitis
CPT/HCPCS: 36415; 74177; 80053; 81001; 83690; 84703; 85025; 96374; 96375; 99284; A9270; C9113; J1170; J2405; J7030; Q9967

== ENCOUNTER 2021-03-09 17:49 | Observation (INO) | payer OTHER ==
[2021-03-09] MEDS ORDERED: Sodium Chloride 0.9% 10 ML Syringe FLUSH PRN (18:57)
[2021-03-09] MEDS ORDERED: Ondansetron 4 MG/2 ML SDV IVPUSH ONE (18:58)
[2021-03-09] MEDS ORDERED: HYDROmorphone 0.5 MG/0.5 ML Syringe IVPUSH ONE ×2 (18:58→21:22)
[2021-03-09] MEDS ORDERED: Sodium Chloride 0.9% 1,000 ML IV ONE (18:58)
--- NOTE | 2021-03-09 19:05 | EDM.PDOC ---
ED HPI GENERAL MEDICAL PROBLEM - General Chief Complaint: Abdominal Pain Stated Complaint: ABD/FLANK PAIN/DIARRHEA Time Seen by Provider: 03/09/21 18:45 Source of Information: Reports: Patient, RN Notes Reviewed History Limitations: Reports: No Limitations - History of Present Illness INITIAL COMMENTS - FREE TEXT/NARRATIVE: Patient is a 35-year-old female who presents to the ER for right upper abdominal pain with associated nausea and diarrhea. The patient states that she was at a wedding this weekend at [facility], and had some alcoholic drinks, and some greasy food the next day to consist of chicken strips, and states by the time she got back to [facility], she ended up having a few bouts of diarrhea, and had some nausea and vomiting. Notes since then she has had some issues with her upper abdomen discomfort. She was seen last month for similar symptoms, but states that the pain seems to be worse in nature. She had a CT, and laboratory evaluation and everything was pretty normal. Patient has had a gastric sleeve, done 1 year ago, and normally has no issues with any of this. She states that a month ago, she had both alcohol and some greasy foods, and then had a "attack" after ingesting those products. She has not had any fevers or chills, cough or shortness of breath. She did test herself for COVID-19 and this was negative. Patient states that movement seems to hurt the pain, walking even seems to hurt, making certain movements like twisting her abdomen side to side seems to hurt. Patient also has a history of endometriosis, but states she is not had a laparoscopy for some time. Last food ingestion was at around 1 PM this afternoon and she had some fruit snacks. Patient also states she has had her uterus taken out. She took some Tylenol and Zofran this morning but has not taken anything else for pain or nausea. States she is still able to pass gas. Upper Abdomen Pain Score (Numeric/FACES): 8 - Related Data Allergies Allergy/AdvReac Type Severity Reaction Status Date / Time No Known Allergies Allergy Verified 03/09/21 18:39 Home Meds: Home Meds Acetaminophen [Tylenol Extra Strength] 1,000 mg PO Q6H PRN 02/12/21 [History] Omeprazole 20 mg PO ASDIRECTED 02/12/21 [History] Ondansetron [Zofran ODT] 1 tab PO Q8H PRN #10 tab.dis 02/12/21 [Rx] Past Medical History HEENT History: Reports: None Cardiovascular History: Reports: None Respiratory History: Reports: Pneumonia, Recurrent Gastrointestinal History: Reports: Chronic Constipation, GERD Genitourinary History: Reports: STD CLOTHING EXAMINER History: Reports: Endometriosis, , Therapeutic , Other (See Below) Other CLOTHING EXAMINER History: , SAB, diagnostic laparoscopy with biospy, port hemorrhage Musculoskeletal History: Reports: Fracture, Other (See Below) Other Musculoskeletal History: broken back in 2003 Neurological History: Reports: Headaches, Chronic Psychiatric History: Reports: Anxiety Endocrine/Metabolic History: Reports: Diabetes, Gestational, Diabetes, Type II Hematologic History: Reports: Anemia Immunologic History: Reports: None Oncologic (Cancer) History: Reports: None Dermatologic History: Reports: None - Infectious Disease History Infectious Disease History: Reports: Chicken Pox - Past Surgical History Head Surgeries/Procedures: Reports: None HEENT Surgical History: Reports: Adenoidectomy, Oral Surgery, Tonsillectomy Cardiovascular Surgical History: Reports: None Respiratory Surgical History: Reports: None GI Surgical History: Reports: Other (See Below) Other GI Surgeries/Procedures: gastric sleeve. Female Surgical History: Reports: Hysterectomy Endocrine Surgical History: Reports: None Neurological Surgical History: Reports: None Musculoskeletal Surgical History: Reports: None Oncologic Surgical History: Reports: None Dermatological Surgical History: Reports: None Social & Family History - Family History Cardiac: Reports: Heart Failure Neurological: Reports: CVA Endocrine/Metabolic: Reports: Diabetes, type II Oncologic: Reports: Prostate, Other (See Below) Other Oncologic Family History: throat cancer- father - Tobacco Use Tobacco Use Status *Q: Never Tobacco User - Caffeine Use Caffeine Use: Reports: Coffee - Recreational Drug Use Recreational Drug Use: No ED ROS GENERAL - Review of Systems Review Of Systems: Comprehensive ROS is negative, except as noted in HPI. ED EXAM, GI/ABD - Physical Exam Exam: See Below Exam Limited By: No Limitations General Appearance: Alert, WD/WN, No Apparent Distress Respiratory/Chest: No Respiratory Distress, Lungs Clear, Normal Breath Sounds, No Accessory Muscle Use, Chest Non-Tender Cardiovascular: Normal Peripheral Pulses, Regular Rate, Rhythm, No Edema GI/Abdominal Exam: Normal Bowel Sounds, Soft, No Distention, No Mass, Tender (Watkins sign positive, but has right sided abdomen pain mainly) Extremities: Normal Inspection, Normal Capillary Refill Neurological: Alert, Oriented, Normal Cognition, No Motor/Sensory Deficits Psychiatric: Normal Affect, Normal Mood Skin Exam: Warm, Dry, Intact, Normal Color, No Rash Course - Vital Signs Last Recorded V/S: Last Vital Signs Temp 97.6 F 03/09/21 18:27 Pulse 90 03/09/21 18:27 Resp 16 03/09/21 18:27 BP 120/83 03/09/21 18:27 Pulse Ox 100 03/09/21 18:27 - Orders/Labs/Meds Orders: Active Orders 24 hr Category Date Time Status Peripheral IV Care [RC] . DIRECTED Care 03/09/21 18:57 Active Abdomen Pelvis w Cont [CT] Stat Exams 03/09/21 20:11 Taken Sodium Chloride 0.9% [Saline Flush] Med 03/09/21 18:57 Active 10 ml FLUSH ASDIRECTED PRN Peripheral IV Insertion Adult [OM.PC] Stat Oth 03/09/21 18:57 Ordered Medication Orders Sodium Chloride (Sodium Chloride 0.9% 10 Ml Syringe) 10 ml FLUSH ASDIRECTED PRN PRN Reason: Keep Vein Open Last Admin: 03/09/21 19:15 Dose: 10 ml Documented by: BIJU Labs: Laboratory Tests 03/09/21 03/09/21 03/09/21 Range/Units 19:00 19:00 20:30 WBC 8.63 (3.98-10.04) K/mm3 RBC 4.44 (3.98-5.22) M/mm3 Hgb 13.2 (11.2-15.7) gm/dl Hct 38.7 (34.1-44.9) % MCV 87.2 (79.4-94.8) fl MCH 29.7 (25.6-32.2) pg MCHC 34.1 (32.2-35.5) g/dl RDW Std Deviation 37.8 (36.4-46.3) fL Plt Count 210 (182-369) K/mm3 MPV 10.4 (9.4-12.3) fl Neut % (Auto) 79.2 H (34.0-71.1) % Lymph % (Auto) 15.9 L (19.3-51.7) % [place] % (Auto) 4.2 L (4.7-12.5) % Eos % (Auto) 0.6 L (0.7-5.8) Baso % (Auto) 0.1 (0.1-1.2) % Neut # (Auto) 6.84 H (1.56-6.13) K/mm3 Lymph # (Auto) 1.37 (1.18-3.74) K/mm3 [place] # (Auto) 0.36 (0.24-0.36) K/mm3 Eos # (Auto) 0.05 (0.04-0.36) K/mm3 Baso # (Auto) 0.01 (0.01-0.08) K/mm3 Sodium 142 (136-145) mEq/L Potassium 3.7 (3.5-5.1) mEq/L Chloride 106 (98-107) mEq/L Carbon Dioxide 27 (21-32) mEq/L Anion Gap 12.7 (5-15) BUN 7 (7-18) mg/dL Creatinine 0.7 (0.55-1.02) mg/dL Est Cr Clr Drug Dosing 101.90 mL/min Estimated GFR (MDRD) > 60 (>60) mL/min BUN/Creatinine Ratio 10.0 L (14-18) Glucose 107 H (70-99) mg/dL Calcium 8.9 (8.5-10.1) mg/dL Total Bilirubin 0.5 (0.2-1.0) mg/dL GGT 21 (5-55) U/L AST 15 (15-37) U/L ALT 23 (14-59) U/L Alkaline Phosphatase 54 (46-116) U/L C-Reactive Protein 2.1 H* (<1.0) mg/dL Total Protein 7.3 (6.4-8.2) g/dl Albumin 3.8 (3.4-5.0) g/dl Globulin 3.5 gm/dL Albumin/Globulin Ratio 1.1 (1-2) Lipase 83 (73-393) U/L Urine Color Yellow (Yellow) Urine Appearance Clear (Clear) Urine pH 7.5 (5.0-8.0) Ur Specific [place] 1.020 (1.005-1.030) Urine Protein Negative (Negative) Urine Glucose (UA) Negative (Negative) Urine Ketones Negative (Negative) Urine Occult Blood Negative (Negative) Urine Nitrite Negative (Negative) Urine Bilirubin Negative (Negative) Urine Urobilinogen 0.2 (0.2-1.0) Ur Leukocyte Esterase Negative (Negative) Urine RBC 0-5 (0-5) /hpf Urine WBC 0-5 (0-5) /hpf Ur Squamous Epith Cells 0-5 (0-5) /hpf Urine Bacteria Occasional (FEW) /hpf Urine Mucus Not seen (FEW) /hpf Meds: Medications Generic Name Dose Route Start Last Admin Trade Name Ester PRN Reason Stop Dose Admin Sodium Chloride 10 ml 03/09/21 18:57 03/09/21 19:15 Sodium Chloride 0.9% 10 Ml Syringe FLUSH 10 ml ASDIRECTED PRN Administration Keep Vein Open Discontinued Medications Generic Name Dose Route Start Last Admin Trade Name Ester PRN Reason Stop Dose Admin Acetaminophen 650 mg 03/09/21 20:12 03/09/21 20:26 Acetaminophen 325 Mg Tab PO 03/09/21 20:13 650 mg NOW ONE Administration Hydromorphone HCl 0.5 mg 03/09/21 18:58 03/09/21 19:13 Hydromorphone 0.5 Mg/0.5 Ml Syringe IVPUSH 03/09/21 18:59 0.5 mg ONETIME ONE Administration Hydromorphone HCl 0.5 mg 03/09/21 21:22 03/09/21 21:28 Hydromorphone 0.5 Mg/0.5 Ml Syringe IVPUSH 03/09/21 21:23 0.5 mg ONETIME ONE Administration Sodium Chloride 1,000 mls @ 999 mls/hr 03/09/21 18:58 03/09/21 19:16 Normal Saline IV 03/09/21 19:58 999 mls/hr ONETIME ONE Administration Ondansetron HCl 4 mg 03/09/21 18:58 03/09/21 19:12 Ondansetron 4 Mg/2 Ml Sdv IVPUSH 03/09/21 18:59 4 mg ONETIME ONE Administration - Re-Assessments/Exams Free Text/Narrative Re-Assessment/Exam: 03/09/21 19:05 Patient presents to the ER for the evaluation of her epigastrium/right upper quadrant abdominal pain. For tonight's purposes we will go ahead and get a IV started, get some basic labs, give her half milligram of Dilaudid, 4 mg Zofran, give her some IV fluids and check a gallbladder ultrasound to try to spare her radiation exposure. Her CT done last month, was essentially normal, there was some small fat-containing hernias appreciated, but no sign of incarceration or strangulation. 03/09/21 20:12 The patient's ultrasound demonstrates no acute abnormalities on the right upper quadrant study, gallbladder shows no findings of gallstones, no gallbladder wall thickening or biliary duct dilatation. Laboratory evaluation again is essentially unremarkable however her CRP is slightly elevated at 2.1. I did go over the findings with the patient, and states she is still having some pain in her abdomen, and would like to have another CT repeated, I did go over the risks of radiation with her, and she states that she would like this test to be performed. So I have ordered an abdomen pelvis CT with IV and oral contrast for ongoing management. 03/09/21 23:[address] has been read by Suzi as early appendicitis, the appendix measures roughly 7.8 cm in AP diameter with hazy margins. I did go over the findings with Dr. Torres, and he will admit the patient for observation overnight, with plan to take the appendix out in the morning, he has given me verbal bridge orders to right, and I will write these and get the patient transferred to [facility] for ongoing management. Departure - Departure Time of Disposition: 23:14 Disposition: Refer to Observation Condition: Good Clinical Impression: Appendicitis Qualifiers: Appendicitis type: acute appendicitis Acute appendicitis type: with localized peritonitis Appendicitis gangrene presence: without gangrene Appendicitis perforation presence: without perforation Appendicitis abscess presence: without abscess Qualified Code(s): K35.30 - Acute appendicitis with localized peritonitis, without perforation or gangrene - Discharge Information *PRESCRIPTION DRUG MONITORING PROGRAM REVIEWED*: No *COPY OF PRESCRIPTION DRUG MONITORING REPORT IN PATIENT JESSICA: No Referrals: Roz Randall PA-C [Primary Care Provider] - Forms: ED Department Discharge Sepsis Event Note (ED) - Evaluation Sepsis Screening Result: No Definite Risk - Focused Exam Vital Signs: Vital Signs Temp Pulse Resp BP Pulse Ox 03/09/21 18:27 97.6 F 90 16 120/83 100 - My Orders Last 24 Hours: My Active Orders 03/09/21 18:57 Peripheral IV Care [RC] . DIRECTED Sodium Chloride 0.9% [Saline Flush] 10 ml FLUSH ASDIRECTED PRN Peripheral IV Insertion Adult [OM.PC] Stat 03/09/21 20:11 Abdomen Pelvis w Cont [CT] Stat - Assessment/Plan Last 24 Hours: My Active Orders 03/09/21 18:57 Peripheral IV Care [RC] . DIRECTED Sodium Chloride 0.9% [Saline Flush] 10 ml FLUSH ASDIRECTED PRN Peripheral IV Insertion Adult [OM.PC] Stat 03/09/21 20:11 Abdomen Pelvis w Cont [CT] Stat
--- NOTE | 2021-03-09 20:02 | US ---
Limited abdominal ultrasound: Multiple real-time images were obtained of the upper right abdomen. Comparison: Prior CT abdomen and pelvis study of 02/12/21, no prior ultrasound study is available. Findings: Liver contains no focal abnormality. Gallbladder shows no findings of gallstones. No gallbladder wall thickening or biliary duct dilatation is seen. Right kidney shows no hydronephrosis or mass. Right kidney has a length of 11.1 cm. Proximal aorta shows no aneurysm. Pancreas is incompletely seen but visualized portions appear within normal limits. Inferior vena cava is patent. Main portal vein shows normal hepatopedal flow. Impression: 1. No abnormality is identified on right upper quadrant abdominal ultrasound. Diagnostic code #1
[2021-03-09] MEDS ORDERED: Acetaminophen 325 MG Tab PO ONE (20:12)
[2021-03-09] MEDS ORDERED: Piperacillin/Tazobactam 4.5 GM in Sodium Chloride 0.9% 100 ML IV ONE (23:20)
[2021-03-09] MEDS ORDERED: Lactated Ringers 1,000 ML IV SCH (23:30)
[2021-03-09] MEDS ORDERED: Ondansetron 4 MG/2 ML SDV IVPUSH PRN (23:53)
[2021-03-10] MEDS: HYDROmorphone 0.5 MG/0.5 ML Syringe IVPUSH PRN ×3 (00:34→10:26)
--- NOTE | 2021-03-10 02:05 | PCM.HP.2 ---
H&P History of Present Illness - General Date of Service: 03/10/21 Admit Problem/Dx: Admission Diagnosis/Problem Admission Diagnosis/Problem Appendicitis Source of Information: Patient History Limitations: Reports: No Limitations - History of Present Illness Initial Comments - Free Text/Narative: Ms. Roach is a 35 yo woman presenting with abdominal pain. This type of pain and location is new for her- she has had episodes of epigastric pain and nausea in the past but she now has lower, right sided abdominal pain. This started two to three days ago. She has had associated nausea. In the ER, she had a CT scan of the abdomen and pelvis with radiologist report describing findings consistent with acute appendicitis. Her WBC is normal at about 8. She has a history of endometriosis and had an ovary-sparing hysterectomy for treatment. She has had a gastric sleeve. Upper Abdomen Pain Score (Numeric/FACES): 8 - Related Data Allergies/Adverse Reactions: Allergies Allergy/AdvReac Type Severity Reaction Status Date / Time No Known Allergies Allergy Verified 03/09/21 18:39 Home Medications: Home Meds Acetaminophen [Tylenol Extra Strength] 1,000 mg PO Q6H PRN 02/12/21 [History] Omeprazole 20 mg PO DAILY 02/12/21 [History] Ondansetron [Zofran ODT] 1 tab PO Q8H PRN #10 tab.dis 02/12/21 [Rx] Past Medical History HEENT History: Reports: None Cardiovascular History: Reports: None Respiratory History: Reports: Pneumonia, Recurrent Gastrointestinal History: Reports: Chronic Constipation, GERD Genitourinary History: Reports: STD NUTTER UP History: Reports: Endometriosis, , Therapeutic , Other (See Below) Other OB/BYN History: , SAB, diagnostic laparoscopy with biospy, port hemorrhage Musculoskeletal History: Reports: Fracture, Other (See Below) Other Musculoskeletal History: broken back in 2003 Neurological History: Reports: Headaches, Chronic Psychiatric History: Reports: Anxiety Endocrine/Metabolic History: Reports: Diabetes, Gestational, Diabetes, Type II, Other (See Below) Other Endocrine/Metabolic History: Pt is no longer diabetic since her gastric sleeve surgery Hematologic History: Reports: Anemia Immunologic History: Reports: None Oncologic (Cancer) History: Reports: None Dermatologic History: Reports: None - Infectious Disease History Infectious Disease History: Reports: Chicken Pox - Past Surgical History Head Surgeries/Procedures: Reports: None HEENT Surgical History: Reports: Adenoidectomy, Oral Surgery, Tonsillectomy Cardiovascular Surgical History: Reports: None Respiratory Surgical History: Reports: None GI Surgical History: Reports: Other (See Below) Other GI Surgeries/Procedures: gastric, 03/26 Female Surgical History: Reports: Hysterectomy Endocrine Surgical History: Reports: None Neurological Surgical History: Reports: None Musculoskeletal Surgical History: Reports: None Oncologic Surgical History: Reports: None Dermatological Surgical History: Reports: None Social & Family History - Family History Family Medical History: Unobtainable Cardiac: Reports: Heart Failure Neurological: Reports: CVA Endocrine/Metabolic: Reports: Diabetes, type II Oncologic: Reports: Prostate, Other (See Below) Other Oncologic Family History: throat cancer- father - Tobacco Use Tobacco Use Status *Q: Never Tobacco User Second Hand Smoke Exposure: No - Caffeine Use Caffeine Use: Reports: None - Alcohol Use Days Per Week of Alcohol Use: 2 Number of Drinks Per Day: 2 Total Drinks Per Week: 4 Date of Last Drink: 03/06/21 Time of Last Drink: 20:00 - Recreational Drug Use Recreational Drug Use: No H&P Review of Systems - Review of Systems: Review Of Systems: See Below General: Reports: No Symptoms HEENT: Reports: No Symptoms Pulmonary: Reports: No Symptoms Cardiovascular: Reports: No Symptoms Gastrointestinal: Reports: Abdominal Pain, Nausea Genitourinary: Reports: No Symptoms Musculoskeletal: Reports: No Symptoms Skin: Reports: No Symptoms Psychiatric: Reports: No Symptoms Neurological: Reports: No Symptoms Hematologic/Lymphatic: Reports: No Symptoms Immunologic: Reports: No Symptoms Exam - Exam Exam: See Below - Vital Signs Vital Signs: Last Vital Signs Temp 36.8 C 03/10/21 00:14 Pulse 75 03/10/21 00:14 Resp 16 03/10/21 00:14 BP 117/77 03/10/21 00:14 Pulse Ox 100 03/10/21 00:14 Weight: 79.424 kg - Exam General: Alert, Oriented, Cooperative HEENT: Conjunctiva Clear Neck: Supple, Trachea Midline Lungs: Clear to Auscultation, Normal Respiratory Effort Cardiovascular: Regular Rate, Regular Rhythm GI/Abdominal Exam: Soft Extremities: Normal Inspection Skin: Warm, Dry Psychiatric: Normal Mood - Patient Data Lab Results Last 24 hrs: Laboratory Results - last 24 hr 03/09/21 03/09/21 03/09/21 Range/Units 19:00 19:00 20:30 WBC 8.63 (3.98-10.04) K/mm3 RBC 4.44 (3.98-5.22) M/mm3 Hgb 13.2 (11.2-15.7) gm/dl Hct 38.7 (34.1-44.9) % MCV 87.2 (79.4-94.8) fl MCH 29.7 (25.6-32.2) pg MCHC 34.1 (32.2-35.5) g/dl RDW Std Deviation 37.8 (36.4-46.3) fL Plt Count 210 (182-369) K/mm3 MPV 10.4 (9.4-12.3) fl Neut % (Auto) 79.2 H (34.0-71.1) % Lymph % (Auto) 15.9 L (19.3-51.7) % [place] % (Auto) 4.2 L (4.7-12.5) % Eos % (Auto) 0.6 L (0.7-5.8) Baso % (Auto) 0.1 (0.1-1.2) % Neut # (Auto) 6.84 H (1.56-6.13) K/mm3 Lymph # (Auto) 1.37 (1.18-3.74) K/mm3 [place] # (Auto) 0.36 (0.24-0.36) K/mm3 Eos # (Auto) 0.05 (0.04-0.36) K/mm3 Baso # (Auto) 0.01 (0.01-0.08) K/mm3 Sodium 142 (136-145) mEq/L Potassium 3.7 (3.5-5.1) mEq/L Chloride 106 (98-107) mEq/L Carbon Dioxide 27 (21-32) mEq/L Anion Gap 12.7 (5-15) BUN 7 (7-18) mg/dL Creatinine 0.7 (0.55-1.02) mg/dL Est Cr Clr Drug Dosing 101.90 mL/min Estimated GFR (MDRD) > 60 (>60) mL/min BUN/Creatinine Ratio 10.0 L (14-18) Glucose 107 H (70-99) mg/dL Calcium 8.9 (8.5-10.1) mg/dL Total Bilirubin 0.5 (0.2-1.0) mg/dL GGT 21 (5-55) U/L AST 15 (15-37) U/L ALT 23 (14-59) U/L Alkaline Phosphatase 54 (46-116) U/L C-Reactive Protein 2.1 H* (<1.0) mg/dL Total Protein 7.3 (6.4-8.2) g/dl Albumin 3.8 (3.4-5.0) g/dl Globulin 3.5 gm/dL Albumin/Globulin Ratio 1.1 (1-2) Lipase 83 (73-393) U/L Urine Color Yellow (Yellow) Urine Appearance Clear (Clear) Urine pH 7.5 (5.0-8.0) Ur Specific [place] 1.020 (1.005-1.030) Urine Protein Negative (Negative) Urine Glucose (UA) Negative (Negative) Urine Ketones Negative (Negative) Urine Occult Blood Negative (Negative) Urine Nitrite Negative (Negative) Urine Bilirubin Negative (Negative) Urine Urobilinogen 0.2 (0.2-1.0) Ur Leukocyte Esterase Negative (Negative) Urine RBC 0-5 (0-5) /hpf Urine WBC 0-5 (0-5) /hpf Ur Squamous Epith Cells 0-5 (0-5) /hpf Urine Bacteria Occasional (FEW) /hpf Urine Mucus Not seen (FEW) /hpf Result Diagrams: 03/09/21 19:00 03/09/21 19:00 Sepsis Event Note - Evaluation Sepsis Screening Result: No Definite Risk - Focused Exam Vital Signs: Vital Signs Temp Temp Pulse Pulse Resp BP BP 03/10/21 00:14 36.8 C 75 16 117/77 03/09/21 23:00 62 20 113/69 03/09/21 18:27 36.4 C 90 16 120/83 Pulse Ox 03/10/21 00:14 100 03/09/21 23:00 97 03/09/21 18:27 100 Problem List Initiated/Reviewed/Updated: Yes Orders Last 24hrs: Active Orders 24 hr Category Date Time Status Patient Status [ADT] Routine ADT 03/09/21 23:26 Active Activity as Tolerated [RC] BID Care 03/09/21 23:51 Active NPO [Nothing Per Oral Diet] [DIET] Diet 03/10/21 Breakfast Active Abdomen Pelvis w Cont [CT] Stat Exams 03/09/21 20:11 Taken HYDROmorphone [Dilaudid] Med 03/09/21 23:52 Active 0.5 mg IVPUSH Q4H PRN Lactated Ringers [Ringers, Lactated] 1,000 ml Med 03/09/21 23:30 Active IV ASDIRECTED Ondansetron [Zofran] Med 03/09/21 23:53 Active 4 mg IVPUSH Q8H PRN Sodium Chloride 0.9% [Saline Flush] Med 03/09/21 18:57 Active 10 ml FLUSH ASDIRECTED PRN Peripheral IV Insertion Adult [OM.PC] Stat Oth 03/09/21 18:57 Ordered Schedule Procedure [COMM] Routine Oth 03/10/21 01:57 Ordered Code Status [Resuscitation Status] Routine Resus Stat 03/10/21 00:01 Ordered Medication Orders Hydromorphone HCl (Hydromorphone 0.5 Mg/0.5 Ml Syringe) 0.5 mg IVPUSH Q4H PRN PRN Reason: Pain Last Admin: 03/10/21 00:34 Dose: 0.5 mg Documented by: ARSEN Lactated Ringer's (Ringers, Lactated) 1,000 mls @ 100 mls/hr IV ASDIRECTED SHELIA Last Admin: 03/09/21 23:51 Dose: 100 mls/hr Documented by: ELISHA Ondansetron HCl (Ondansetron 4 Mg/2 Ml Sdv) 4 mg IVPUSH Q8H PRN PRN Reason: Nausea Sodium Chloride (Sodium Chloride 0.9% 10 Ml Syringe) 10 ml FLUSH ASDIRECTED PRN PRN Reason: Keep Vein Open Last Admin: 03/09/21 19:15 Dose: 10 ml Documented by: BIJU Assessment/Plan Comment:: Although the diagnosis of acute appendicitis seems likely, there are a few findings, including chronicity of symptoms, normal white count, history of endometriosis, which bring the diagnosis into question. My personal interpretation of the CT is that there is a small cystic lesion with inflam matory stranding the right pelvis, possibly separate from the appendix. I discussed this with the patient and feel that appendectomy is indicated regardless, and will explore the abdomen with the laparoscope at the same time if necessary. - Mortality Measure Prognosis:: Good
--- NOTE | 2021-03-10 02:13 | PCM.PREANE ---
Preanesthetic Assessment - Procedure Proposed Procedure: Laparoscopic Appendectomy - Anesthesia/Transfusion/Family Hx Anesthesia History: Prior Anesthesia Reaction Type of Anesthesia Reaction: Excessive Nausea/Vomiting Family History of Anesthesia Reaction: No Transfusion History: No Prior Transfusion(s) Intubation History: Unknown - Review of Systems General: Weakness Pulmonary: No Symptoms Cardiovascular: No Symptoms Gastrointestinal: Abdominal Pain, Diarrhea, Nausea, Vomiting Neurological: No Symptoms Other: Reports: Diabetes (resolved since gastric sleeve), Anxiety - Physical Assessment NPO Status Date: 03/09/21 (Crackers/broth at 1130) NPO Status Time: 23:30 Vital Signs: Last Vital Signs Temp 98.2 F 03/10/21 00:14 Pulse 75 03/10/21 00:14 Resp 16 03/10/21 00:14 BP 117/77 03/10/21 00:14 Pulse Ox 100 03/10/21 00:14 Height: 1.65 m Weight: 79.424 kg ASA Class: 2E Mental Status: Alert & Oriented x3 Airway Class: Mallampati = 2 Dentition: Reports: Normal Dentition, [place](s) Thyro-Mental Finger Breadths: 3 Mouth Opening Finger Breadths: 3 ROM/Head Extension: Full Lungs: Clear to Auscultation, Normal Respiratory Effort Cardiovascular: Regular Rate, Regular Rhythm - Lab Values: Laboratory Last Values WBC 8.63 K/mm3 (3.98-10.04) 03/09/21 19:00 RBC 4.44 M/mm3 (3.98-5.22) 03/09/21 19:00 Hgb 13.2 gm/dl (11.2-15.7) 03/09/21 19:00 Hct 38.7 % (34.1-44.9) 03/09/21 19:00 MCV 87.2 fl (79.4-94.8) 03/09/21 19:00 MCH 29.7 pg (25.6-32.2) 03/09/21 19:00 MCHC 34.1 g/dl (32.2-35.5) 03/09/21 19:00 RDW Std Deviation 37.8 fL (36.4-46.3) 03/09/21 19:00 Plt Count 210 K/mm3 (182-369) 03/09/21 19:00 MPV 10.4 fl (9.4-12.3) 03/09/21 19:00 Neut % (Auto) 79.2 % (34.0-71.1) H 03/09/21 19:00 Lymph % (Auto) 15.9 % (19.3-51.7) L 03/09/21 19:00 [place] % (Auto) 4.2 % (4.7-12.5) L 03/09/21 19:00 Eos % (Auto) 0.6 (0.7-5.8) L 03/09/21 19:00 Baso % (Auto) 0.1 % (0.1-1.2) 03/09/21 19:00 Neut # (Auto) 6.84 K/mm3 (1.56-6.13) H 03/09/21 19:00 Lymph # (Auto) 1.37 K/mm3 (1.18-3.74) 03/09/21 19:00 [place] # (Auto) 0.36 K/mm3 (0.24-0.36) 03/09/21 19:00 Eos # (Auto) 0.05 K/mm3 (0.04-0.36) 03/09/21 19:00 Baso # (Auto) 0.01 K/mm3 (0.01-0.08) 03/09/21 19:00 Sodium 142 mEq/L (136-145) 03/09/21 19:00 Potassium 3.7 mEq/L (3.5-5.1) 03/09/21 19:00 Chloride 106 mEq/L (98-107) 03/09/21 19:00 Carbon Dioxide 27 mEq/L (21-32) 03/09/21 19:00 Anion Gap 12.7 (5-15) 03/09/21 19:00 BUN 7 mg/dL (7-18) 03/09/21 19:00 Creatinine 0.7 mg/dL (0.55-1.02) 03/09/21 19:00 Est Cr Clr Drug Dosing 101.90 mL/min 03/09/21 19:00 Estimated GFR (MDRD) > 60 mL/min (>60) 03/09/21 19:00 BUN/Creatinine Ratio 10.0 (14-18) L 03/09/21 19:00 Glucose 107 mg/dL (70-99) H 03/09/21 19:00 Calcium 8.9 mg/dL (8.5-10.1) 03/09/21 19:00 Total Bilirubin 0.5 mg/dL (0.2-1.0) 03/09/21 19:00 GGT 21 U/L (5-55) 03/09/21 19:00 AST 15 U/L (15-37) 03/09/21 19:00 ALT 23 U/L (14-59) 03/09/21 19:00 Alkaline Phosphatase 54 U/L (46-116) 03/09/21 19:00 C-Reactive Protein 2.1 mg/dL (<1.0) H* 03/09/21 19:00 Total Protein 7.3 g/dl (6.4-8.2) 03/09/21 19:00 Albumin 3.8 g/dl (3.4-5.0) 03/09/21 19:00 Globulin 3.5 gm/dL 03/09/21 19:00 Albumin/Globulin Ratio 1.1 (1-2) 03/09/21 19:00 Lipase 83 U/L (73-393) 03/09/21 19:00 Urine Color Yellow (Yellow) 03/09/21 20:30 Urine Appearance Clear (Clear) 03/09/21 20:30 Urine pH 7.5 (5.0-8.0) 03/09/21 20:30 Ur Specific [place] 1.020 (1.005-1.030) 03/09/21 20:30 Urine Protein Negative (Negative) 03/09/21 20:30 Urine Glucose (UA) Negative (Negative) 03/09/21 20:30 Urine Ketones Negative (Negative) 03/09/21 20:30 Urine Occult Blood Negative (Negative) 03/09/21 20:30 Urine Nitrite Negative (Negative) 03/09/21 20:30 Urine Bilirubin Negative (Negative) 03/09/21 20:30 Urine Urobilinogen 0.2 (0.2-1.0) 03/09/21 20:30 Ur Leukocyte Esterase Negative (Negative) 03/09/21 20:30 Urine RBC 0-5 /hpf (0-5) 03/09/21 20:30 Urine WBC 0-5 /hpf (0-5) 03/09/21 20:30 Ur Squamous Epith Cells 0-5 /hpf (0-5) 03/09/21 20:30 Urine Bacteria Occasional /hpf (FEW) 03/09/21 20:30 Urine Mucus Not seen /hpf (FEW) 03/09/21 20:30 - Allergies Allergies/Adverse Reactions: Allergies Allergy/AdvReac Type Severity Reaction Status Date / Time No Known Allergies Allergy Verified 03/09/21 18:39 - Blood Blood Available: No Product(s) Available: None - Acknowledgements Anesthesia Type Planned: General Anesthesia Pt an Appropriate Candidate for the Planned Anesthesia: Yes Alternatives and Risks of Anesthesia Discussed w Pt/Guardian: Yes Pt/Guardian Understands and Agrees with Anesthesia Plan: Yes PreAnesthesia Questionnaire HEENT History: Reports: None Cardiovascular History: Reports: None Respiratory History: Reports: Pneumonia, Recurrent Gastrointestinal History: Reports: Chronic Constipation, GERD Genitourinary History: Reports: [employer] History: Reports: Endometriosis, , Therapeutic , Other (See Below) Other OB/BYN History: , SAB, diagnostic laparoscopy with biospy, port hemorrhage Musculoskeletal History: Reports: Fracture, Other (See Below) Other Musculoskeletal History: broken back in 2003 Neurological History: Reports: Headaches, Chronic Psychiatric History: Reports: Anxiety Endocrine/Metabolic History: Reports: Diabetes, Gestational, Diabetes, Type II, Other (See Below) Other Endocrine/Metabolic History: Pt is no longer diabetic since her gastric sleeve surgery Hematologic History: Reports: Anemia Immunologic History: Reports: None Oncologic (Cancer) History: Reports: None Dermatologic History: Reports: None - Infectious Disease History Infectious Disease History: Reports: Chicken Pox - Past Surgical History Head Surgeries/Procedures: Reports: None HEENT Surgical History: Reports: Adenoidectomy, Oral Surgery, Tonsillectomy Cardiovascular Surgical History: Reports: None Respiratory Surgical History: Reports: None GI Surgical History: Reports: Other (See Below) Other GI Surgeries/Procedures: gastric, 03/26 Female Surgical History: Reports: Hysterectomy Endocrine Surgical History: Reports: None Neurological Surgical History: Reports: None Musculoskeletal Surgical History: Reports: None Oncologic Surgical History: Reports: None Dermatological Surgical History: Reports: None - SUBSTANCE USE Tobacco Use Status *Q: Former Tobacco User (2016) Tobacco Use Within Last Twelve Months: No Second Hand Smoke Exposure: No Days Per Week of Alcohol Use: 2 Number of Drinks Per Day: 2 Total Drinks Per Week: 4 Date of Last Drink: 03/06/21 Time of Last Drink: 20:00 Recreational Drug Use History: No - HOME MEDS Home Medications: Home Meds Acetaminophen [Tylenol Extra Strength] 1,000 mg PO Q6H PRN 02/12/21 [History] Omeprazole 20 mg PO DAILY 02/12/21 [History] Ondansetron [Zofran ODT] 1 tab PO Q8H PRN #10 tab.dis 02/12/21 [Rx] - CURRENT (IN HOUSE) MEDS Current Meds: Current Medications Hydromorphone HCl (Hydromorphone 0.5 Mg/0.5 Ml Syringe) 0.5 mg IVPUSH Q4H PRN PRN Reason: Pain Last Admin: 03/10/21 00:34 Dose: 0.5 mg Documented by: Lactated Ringer's (Ringers, Lactated) 1,000 mls @ 100 mls/hr IV ASDIRECTED SHELIA Last Admin: 03/09/21 23:51 Dose: 100 mls/hr Documented by: Ondansetron HCl (Ondansetron 4 Mg/2 Ml Sdv) 4 mg IVPUSH Q8H PRN PRN Reason: Nausea Sodium Chloride (Sodium Chloride 0.9% 10 Ml Syringe) 10 ml FLUSH ASDIRECTED PRN PRN Reason: Keep Vein Open Last Admin: 03/09/21 19:15 Dose: 10 ml Documented by: Discontinued Medications Acetaminophen (Acetaminophen 325 Mg Tab) 650 mg PO NOW ONE Stop: 03/09/21 20:13 Last Admin: 03/09/21 20:26 Dose: 650 mg Documented by: Hydromorphone HCl (Hydromorphone 0.5 Mg/0.5 Ml Syringe) 0.5 mg IVPUSH ONETIME ONE Stop: 03/09/21 18:59 Last Admin: 03/09/21 19:13 Dose: 0.5 mg Documented by: Hydromorphone HCl (Hydromorphone 0.5 Mg/0.5 Ml Syringe) 0.5 mg IVPUSH ONETIME ONE Stop: 03/09/21 21:23 Last Admin: 03/09/21 21:28 Dose: 0.5 mg Documented by: Sodium Chloride (Normal Saline) 1,000 mls @ 999 mls/hr IV ONETIME ONE Stop: 03/09/21 19:58 Last Admin: 03/09/21 19:16 Dose: 999 mls/hr Documented by: Piperacillin Sod/Tazobactam (Sod 4.5 gm/ Sodium Chloride) 100 mls @ 200 mls/hr IV ONETIME ONE Stop: 03/09/21 23:49 Last Admin: 03/09/21 23:51 Dose: 200 mls/hr Documented by: Ondansetron HCl (Ondansetron 4 Mg/2 Ml Sdv) 4 mg IVPUSH ONETIME ONE Stop: 03/09/21 18:59 Last Admin: 03/09/21 19:12 Dose: 4 mg Documented by:
[2021-03-10] MEDS ORDERED: Rocuronium 50 MG/5 ML Vial ONE (02:40)
[2021-03-10] MEDS ORDERED: Propofol 200 MG/20 ML SDV ONE ×2 (02:40→04:15)
[2021-03-10] MEDS ORDERED: Dexamethasone 4 MG/ML 5 ML MDV ONE (02:40)
[2021-03-10] MEDS ORDERED: fentaNYL 250 MCG/5 ML SDV ONE (02:40)
[2021-03-10] MEDS ORDERED: Ondansetron 4 MG/2 ML SDV ONE (02:40)
--- NOTE | 2021-03-10 03:17 | PCM.PRNOTE ---
- Free Text/Narrative Note: Date: 03/10/2021 Operation: laparoscopic appendectomy Indication: acute appendicitis Surgeon: Jt Torres MD Findings: inflamed appendix without gangrene or perforation. Right ovarian cyst. Detailed Report: The patient was taken to the operating room from the emergency room for planned laparoscopic appendectomy. The patient had been administered Zosyn on the wards. The patient was positioned on the table supine and timeout was performed. General endotracheal anesthesia was initiated. The patient's left arm was tucked at her side. The abdomen was prepped and draped in usual sterile fashion. A Veress needle was placed at the left upper quadrant in order to establish pneumoperitoneum. Once pressure reached 15 mmHg, air was aspirated inferior to the umbilicus with a needle and syringe. A 2 cm supraumbilical midline incision was made and a 12 mm bladed trocar was inserted into the abdomen. A 5 mm 30 degree laparoscope was inserted and abdominal contents were inspected. The Veress needle was seen and there was no apparent injury from placement. The needle was removed under laparoscopic visualization. Additional 5 mm ports were placed in the suprapubic region and left lower quadrant. Patient was positioned in Trendelenburg and rotated towards the surgeon standing on the patient's left side. Small bowel was moved out of the way in order to expose the cecum and appendix. The appendix was inflamed without evidence of gangrene or perforation. The appendix was retracted anteriorly and inferiorly putting tension on the mesoappendix. The [place] LigaSure was used to make a window through the mesoappendix at the base of the cecum. A 30 mm white load on a laparoscopic linear cutting stapler was used to divide the appendix at its base. The staple line appeared hemostatic. The specimen was placed in an Endo Catch bag and removed through the umbilical port site. The right ovary was identified and inspected- there appeared to be a subcentimeter cyst which was photographed. The umbilical port site was closed at the level of fascia with 0 Vicryl using laparoscopic suture passer. The lateral port site was removed under laparoscopic visualization and there was no hemorrhage noted. Pneumoperitoneum was released and the remaining port was removed. All incisions were closed at the level of skin with running 4-0 Vicryl suture and dressed with Dermabond. A total of 30 cc 0.5% Marcaine with epinephrine was used for local anesthetic throughout the case. The patient tolerated the operation well.
[2021-03-10] MEDS ORDERED: Bupivacaine 0.5%/EPINEPHrine 1:200,000 50 ML MDV ONE (03:31)
[2021-03-10] MEDS ORDERED: Scopolamine 1.5 MG Transdermal Patch TOP ONE (03:43)
[2021-03-10] MEDS ORDERED: Succinylcholine/Sod PF 100 MG/5 ML SYRINGE IV ONE ×2 (03:51)
[2021-03-10] MEDS ORDERED: Midazolam 1 MG/ML 2 ML SDV ONE (04:08)
[2021-03-10] MEDS ORDERED: Lactated Ringers 1,000 ML ONE (04:11)
--- NOTE | 2021-03-10 04:45 | PCM.DCSUM1 ---
Discharge Summary - Hospital Course Free Text/Narrative:: Admitted from the ER last night with abdominal pain and imaging showing evidence of acute appendicitis. Routine laparoscopic appendectomy was performed without complication. Diagnosis: Stroke: No - Discharge Data Discharge Date: 03/10/21 Discharge Disposition: Home, Self-Care 01 Condition: Good - Referral to Home Health Primary Care Physician: HONG Carballo - Patient Instructions Diet: Usual Diet as Tolerated Activity: As Tolerated, No Lifting Over 10 Pounds Showering/Bathing: May Shower, No Tub Bathing/Swimming Wound/Incision Care: Keep Operative Site/Wound Site Clean and Dry Notify Provider of: Fever, Increased Pain, Swelling and Redness, Drainage, Nausea and/or Vomiting - Discharge Plan *PRESCRIPTION DRUG MONITORING PROGRAM REVIEWED*: No *COPY OF PRESCRIPTION DRUG MONITORING REPORT IN PATIENT JESSICA: No Prescriptions/Med Rec: oxyCODONE 5 mg PO Q4H PRN #15 tab PRN Reason: Pain Home Medications: Home Meds Acetaminophen [Tylenol Extra Strength] 1,000 mg PO Q6H PRN 02/12/21 [History] Omeprazole 20 mg PO DAILY 02/12/21 [History] Ondansetron [Zofran ODT] 1 tab PO Q8H PRN #10 tab.dis 02/12/21 [Rx] oxyCODONE 5 mg PO Q4H PRN #15 tab 03/10/21 [Rx] Oxygen Therapy Mode: Room Air Forms: ED Department Discharge Referrals: Roz Randall PA-C [Primary Care Provider] - - Discharge Summary/Plan Comment DC Time >30 min.: No - Patient Data Vitals - Most Recent: Last Vital Signs Temp 36.8 C 03/10/21 03:22 Pulse 72 03/10/21 03:22 Resp 16 03/10/21 03:22 BP 110/89 03/10/21 03:22 Pulse Ox 100 03/10/21 03:22 Weight - Most Recent: 80.195 kg I&O - Last 24 hours: Intake & Output 03/09/21 03/09/21 03/10/21 14:59 22:59 06:59 Intake Total 377 Output Total 450 Balance -73 Lab Results - Last 24 hrs: Laboratory Results - last 24 hr 03/09/21 03/09/21 03/09/21 Range/Units 19:00 19:00 20:30 WBC 8.63 (3.98-10.04) K/mm3 RBC 4.44 (3.98-5.22) M/mm3 Hgb 13.2 (11.2-15.7) gm/dl Hct 38.7 (34.1-44.9) % MCV 87.2 (79.4-94.8) fl MCH 29.7 (25.6-32.2) pg MCHC 34.1 (32.2-35.5) g/dl RDW Std Deviation 37.8 (36.4-46.3) fL Plt Count 210 (182-369) K/mm3 MPV 10.4 (9.4-12.3) fl Neut % (Auto) 79.2 H (34.0-71.1) % Lymph % (Auto) 15.9 L (19.3-51.7) % [place] % (Auto) 4.2 L (4.7-12.5) % Eos % (Auto) 0.6 L (0.7-5.8) Baso % (Auto) 0.1 (0.1-1.2) % Neut # (Auto) 6.84 H (1.56-6.13) K/mm3 Lymph # (Auto) 1.37 (1.18-3.74) K/mm3 [place] # (Auto) 0.36 (0.24-0.36) K/mm3 Eos # (Auto) 0.05 (0.04-0.36) K/mm3 Baso # (Auto) 0.01 (0.01-0.08) K/mm3 Sodium 142 (136-145) mEq/L Potassium 3.7 (3.5-5.1) mEq/L Chloride 106 (98-107) mEq/L Carbon Dioxide 27 (21-32) mEq/L Anion Gap 12.7 (5-15) BUN 7 (7-18) mg/dL Creatinine 0.7 (0.55-1.02) mg/dL Est Cr Clr Drug Dosing 101.90 mL/min Estimated GFR (MDRD) > 60 (>60) mL/min BUN/Creatinine Ratio 10.0 L (14-18) Glucose 107 H (70-99) mg/dL Calcium 8.9 (8.5-10.1) mg/dL Total Bilirubin 0.5 (0.2-1.0) mg/dL GGT 21 (5-55) U/L AST 15 (15-37) U/L ALT 23 (14-59) U/L Alkaline Phosphatase 54 (46-116) U/L C-Reactive Protein 2.1 H* (<1.0) mg/dL Total Protein 7.3 (6.4-8.2) g/dl Albumin 3.8 (3.4-5.0) g/dl Globulin 3.5 gm/dL Albumin/Globulin Ratio 1.1 (1-2) Lipase 83 (73-393) U/L Urine Color Yellow (Yellow) Urine Appearance Clear (Clear) Urine pH 7.5 (5.0-8.0) Ur Specific [place] 1.020 (1.005-1.030) Urine Protein Negative (Negative) Urine Glucose (UA) Negative (Negative) Urine Ketones Negative (Negative) Urine Occult Blood Negative (Negative) Urine Nitrite Negative (Negative) Urine Bilirubin Negative (Negative) Urine Urobilinogen 0.2 (0.2-1.0) Ur Leukocyte Esterase Negative (Negative) Urine RBC 0-5 (0-5) /hpf Urine WBC 0-5 (0-5) /hpf Ur Squamous Epith Cells 0-5 (0-5) /hpf Urine Bacteria Occasional (FEW) /hpf Urine Mucus Not seen (FEW) /hpf Med Orders - Current: Current Medications Hydromorphone HCl (Hydromorphone 0.5 Mg/0.5 Ml Syringe) 0.5 mg IVPUSH Q4H PRN PRN Reason: Pain Last Admin: 03/10/21 00:34 Dose: 0.5 mg Documented by: Lactated Ringer's (Ringers, Lactated) 1,000 mls @ 100 mls/hr IV ASDIRECTED SHELIA Last Admin: 03/09/21 23:51 Dose: 100 mls/hr Documented by: Miscellaneous Information (Remove Transderm Scop Patch) 1 ea TRDERM Q72H [facility] Stop: 03/13/21 04:01 Ondansetron HCl (Ondansetron 4 Mg/2 Ml Sdv) 4 mg IVPUSH Q8H PRN PRN Reason: Nausea Sodium Chloride (Sodium Chloride 0.9% 10 Ml Syringe) 10 ml FLUSH ASDIRECTED PRN PRN Reason: Keep Vein Open Last Admin: 03/09/21 19:15 Dose: 10 ml Documented by: Discontinued Medications Acetaminophen (Acetaminophen 325 Mg Tab) 650 mg PO NOW ONE Stop: 03/09/21 20:13 Last Admin: 03/09/21 20:26 Dose: 650 mg Documented by: Bupivacaine HCl/Epinephrine Bitart (Bupivacaine 0.5%/Epinephrine 1:200,000 50 Ml Mdv) Confirm Administered Dose 50 ml .ROUTE .STK-MED ONE Stop: 03/10/21 03:32 Dexamethasone (Dexamethasone 4 Mg/Ml 5 Ml Mdv) Confirm Administered Dose 20 mg .ROUTE .STK-MED ONE Stop: 03/10/21 02:41 Fentanyl (Fentanyl 250 Mcg/5 Ml Sdv) Confirm Administered Dose 250 mcg .ROUTE .STK-MED ONE Stop: 03/10/21 02:41 Glycopyrrolate (Glycopyrrolate 0.2 Mg/Ml 2 Ml Syringe) Confirm Administered Dose 0.4 mg .ROUTE .STK-MED ONE Stop: 03/10/21 04:27 Glycopyrrolate (Glycopyrrolate 0.2 Mg/Ml 2 Ml Syringe) Confirm Administered Dose 0.4 mg .ROUTE .STK-MED ONE Stop: 03/10/21 04:32 Hydromorphone HCl (Hydromorphone 0.5 Mg/0.5 Ml Syringe) 0.5 mg IVPUSH ONETIME ONE Stop: 03/09/21 18:59 Last Admin: 03/09/21 19:13 Dose: 0.5 mg Documented by: Hydromorphone HCl (Hydromorphone 0.5 Mg/0.5 Ml Syringe) 0.5 mg IVPUSH ONETIME ONE Stop: 03/09/21 21:23 Last Admin: 03/09/21 21:28 Dose: 0.5 mg Documented by: Sodium Chloride (Normal Saline) 1,000 mls @ 999 mls/hr IV ONETIME ONE Stop: 03/09/21 19:58 Last Admin: 03/09/21 19:16 Dose: 999 mls/hr Documented by: Piperacillin Sod/Tazobactam (Sod 4.5 gm/ Sodium Chloride) 100 mls @ 200 mls/hr IV ONETIME ONE Stop: 03/09/21 23:49 Last Admin: 03/09/21 23:51 Dose: 200 mls/hr Documented by: Lactated Ringer's (Ringers, Lactated) Confirm Administered Dose 1,000 mls @ as directed .ROUTE .STK-MED ONE Stop: 03/10/21 04:12 Lidocaine HCl (Lidocaine 1% 5 Ml Sdv) Confirm Administered Dose 5 ml .ROUTE .STK-MED ONE Stop: 03/10/21 02:41 Midazolam HCl (Midazolam 1 Mg/Ml 2 Ml Sdv) Confirm Administered Dose 2 mg .ROUTE .STK-MED ONE Stop: 03/10/21 04:09 Neostigmine Methylsulfate (Neostigmine Methylsulfate 5 Mg/5 Ml Syringe) Confirm Administered Dose 5 mg .ROUTE .STK-MED ONE Stop: 03/10/21 04:27 Ondansetron HCl (Ondansetron 4 Mg/2 Ml Sdv) 4 mg IVPUSH ONETIME ONE Stop: 03/09/21 18:59 Last Admin: 03/09/21 19:12 Dose: 4 mg Documented by: Ondansetron HCl (Ondansetron 4 Mg/2 Ml Sdv) Confirm Administered Dose 4 mg .ROUTE .STK-MED ONE Stop: 03/10/21 02:41 Propofol (Propofol 200 Mg/20 Ml Sdv) Confirm Administered Dose 200 mg .ROUTE .STK-MED ONE Stop: 03/10/21 02:41 Propofol (Propofol 200 Mg/20 Ml Sdv) Confirm Administered Dose 200 mg .ROUTE .STK-MED ONE Stop: 03/10/21 04:16 Rocuronium [place] (Rocuronium 50 Mg/5 Ml Vial) Confirm Administered Dose 50 mg .ROUTE .STK-MED ONE Stop: 03/10/21 02:41 Scopolamine (Scopolamine 1.5 Mg Transdermal Patch) 1.5 mg TOP ONETIME ONE Stop: 03/10/21 03:44 Last Admin: 03/10/21 03:49 Dose: 1.5 mg Documented by:
[2021-03-10] MEDS ORDERED: Ondansetron 4 MG/2 ML SDV IVPUSH PRN (05:02)
[2021-03-10] MEDS ORDERED: fentaNYL 100 MCG/2 ML SDV IVPUSH PRN (05:02)
[2021-03-10] MEDS ORDERED: HYDROmorphone 0.5 MG/0.5 ML Syringe IVPUSH PRN (05:02)
--- NOTE | 2021-03-10 05:03 | PCM.POSTAN ---
POST ANESTHESIA ASSESSMENT - MENTAL STATUS Mental Status: Alert, Oriented - VITAL SIGNS Vital Signs: Last Vital Signs Temp 98.2 F 03/10/21 03:22 Pulse 72 03/10/21 03:22 Resp 16 03/10/21 03:22 BP 110/89 03/10/21 03:22 Pulse Ox 100 03/10/21 03:22 - RESPIRATORY Respiratory Status: Respiratory Rate WNL, Airway Patent, O2 Saturation Stable - CARDIOVASCULAR CV Status: Pulse Rate WNL, Blood Pressure Stable - GASTROINTESTINAL GI Status: No Symptoms - PAIN Pain Score: 0 - POST OP HYDRATION Hydration Status: Adequate & Stable
[2021-03-10] MEDS ORDERED: oxyCODONE 5 MG Tab PO PRN (05:16)
[2021-03-10] MEDS ORDERED: Benzocaine/Cetylpyridinium/Menthol Lozenge MUCMEM PRN (06:56)
--- NOTE | 2021-03-10 07:30 | PCM48HPAN ---
Post Anesthesia Note - EVALUATION WITHIN 48HRS OF ANESTHETIC Vital Signs in Normal Range: Yes Patient Participated in Evaluation: Yes Respiratory Function Stable: Yes Airway Patent: Yes Cardiovascular Function Stable: Yes Hydration Status Stable: Yes Pain Control Satisfactory: Yes Nausea and Vomiting Control Satisfactory: Yes Mental Status Recovered: Yes Vital Signs: Last Vital Signs Temp 97.5 F 03/10/21 05:50 Pulse 62 03/10/21 07:16 Resp 15 03/10/21 05:44 BP 101/64 03/10/21 07:16 Pulse Ox 95 03/10/21 07:16 - COMMENTS/OBSERVATIONS Free Text/Narrative:: very pleased with care
--- NOTE | 2021-03-10 07:41 | CT ---
CT abdomen and pelvis Technique: Multiple axial sections were obtained from above the dome of the diaphragm inferiorly through the pubic symphysis. Intravenous and oral contrast were utilized. Delayed images were also obtained to the bladder. Reconstructed coronal and sagittal images were also obtained. Comparison: Prior CT abdomen and pelvis study of 02/12/21. Prior right upper quadrant abdominal ultrasound performed on 03/09/21 is also available. Findings: Visualized lung bases show nothing acute. Liver and spleen show no focal parenchymal abnormality. Adrenal glands show no nodule. No abnormality is appreciated within the pancreas. Prior stomach surgery is noted. Gallbladder contains no calcified gallstones. Kidneys show symmetric contrast enhancement without hydronephrosis or mass. Fat-containing umbilical hernias are noted. Abdominal aorta shows no aneurysm. No retroperitoneal adenopathy or mesenteric abnormalities are seen. No discrete pelvic mass or adenopathy is seen. Appendix is seen. Appendix has increased in size from previous exam. Appendix measures up to 0.8 cm. No definite inflammatory change is seen around the appendix. Bone window settings were reviewed which show no acute osseous finding. Impression: 1. Increasing size of the appendix from prior exam. This finding is suspicious for early appendicitis. Please correlate with the patient's clinical symptoms and physical findings. 2. Umbilical fat-containing hernias. 3. No other acute abnormality is appreciated. Diagnostic code #3 I agree with preliminary report from [facility], finalized on 03/09/21, 11:57 PM CDT
== END 2021-03-10 10:44 | disposition home or self-care (01) ==
LOC: JD.ED 17:49 → JD.MS 23:26
PROVIDERS: ADMIT Surgery; ATTEND Surgery
DX: K35.30 Acute appendicitis with localized peritonitis, without perforation or gangrene (principal); N80.5 Endometriosis of intestine; E11.9 Type 2 diabetes mellitus without complications; Z79.899 Other long term (current) drug therapy
CPT/HCPCS: 00840; 36415; 74177; 74177-26; 76705; 76705-26; 80053; 81001; 82977; 83690; 85025; 86140; 96365; 96374; 96375; 96376; 99285; 99285-25; A9270-GY; G0378; J0330; J1100; J1170; J2250; J2405; J2543; J2704; J2710; J3010; J3490; J7030; J7120